=== PATIENT | male | born 1950 | race Caucasian/White ===

== ENCOUNTER 2021-08-10 10:22 | Observation (INO) | payer OTHER, MEDICARE ==
--- NOTE | 2021-08-10 11:40 | ED ---
General Adult HPI - General Chief complaint: Chest Pain Stated complaint: Chest Pain Time Seen by Provider: 08/10/21 11:32 Source: patient, family, RN notes reviewed, old records reviewed Mode of arrival: ambulatory Limitations: no limitations - History of Present Illness Initial comments: 71-year-old male presenting for evaluation chest pain. Patient has history of CAD status post multiple stents. Most recently 2014. She states [facility], he does not know the results. He just prior to arrival today he developed a substernal chest pain which was nonradiating. No associated vomiting or diarrhea. He states this pain has resolved currently. He denies dyspnea. He denies lower extremity pain or swelling. - Related Data Home Medications Medication Instructions Recorded Confirmed Aspirin 81 mg PO DAILY 08/10/21 08/10/21 Finasteride [Proscar] 5 mg PO DAILY 08/10/21 08/10/21 Metoprolol Tartrate [Lopressor] 50 mg PO BID 08/10/21 08/10/21 Primidone [Mysoline] 50 mg PO HS 08/10/21 08/10/21 Ranolazine [Ranexa] 500 mg PO BID 08/10/21 08/10/21 metFORMIN HCL [Glucophage] 1,000 mg PO DAILY 08/10/21 08/10/21 Allergies Allergy/AdvReac Type Severity Reaction Status Date / Time No Known Allergies Allergy Verified 08/10/21 12:57 Review of Systems ROS Statement: Those systems with pertinent positive or pertinent negative responses have been documented in the HPI. ROS Other: All systems not noted in ROS Statement are negative. Past Medical History Past Medical History: Chest Pain / Angina, Diabetes Mellitus, Hypertension, Myocardial Infarction ([place]) History of Any Multi-Drug Resistant Organisms: None Reported Past Surgical History: Heart Catheterization, Heart Catheterization With Stent Past Psychological History: No Psychological Hx Reported Smoking Status: Never smoker Past Alcohol Use History: Occasional Past Drug Use History: None Reported General Exam Limitations: no limitations General appearance: alert, in no apparent distress Head exam: Present: atraumatic, normocephalic Eye exam: Present: normal appearance, PERRL ENT exam: Present: normal exam Neck exam: Present: normal inspection. Absent: tenderness, meningismus Respiratory exam: Present: normal lung sounds bilaterally. Absent: respiratory distress, wheezes Cardiovascular Exam: Present: regular rate, normal rhythm GI/Abdominal exam: Present: soft. Absent: distended, tenderness, guarding Extremities exam: Present: normal inspection, normal capillary refill, pedal edema Neurological exam: Present: alert, oriented X3, CN II-XII intact. Absent: motor sensory deficit Psychiatric exam: Present: normal affect, normal mood Skin exam: Present: warm, dry, intact. Absent: cyanosis, diaphoretic Course Vital Signs 08/10/21 08/10/21 10:24 12:57 Temperature 98.6 F Pulse Rate 68 64 Respiratory 18 17 Rate Blood Pressure 177/77 133/72 O2 Sat by Pulse 99 98 Oximetry EKG Findings - EKG Comments: EKG Findings:: EKG: Normal sinus rhythm, left axis deviation, right bundle branch block rate of 65, SC interval 176, QRS duration 152 QTC 434, no ST segment elevation. Medical Decision Making - Medical Decision Making 71-year-old male with known CAD, presents with an episode of central chest pain. Resolved with time my evaluation and resolved at the time of my reevaluation at 1310. Patient is has chest x-ray which is negative for acute cardiopulmonary findings, normal CBC, normal CBC, negative initial troponin. Given his risk factors and previous history she will be admitted for severe cardiac enzymes, telemetry, cardiology consultation. Case discussed with Dr. Lopez who will admit. - Lab Data Result diagrams: 08/10/21 11:38 08/10/21 11:38 Lab Results 08/10/21 08/10/21 08/10/21 Range/Units 11:38 11:38 11:38 WBC 5.3 (3.8-10.6) k/uL RBC 4.84 (4.30-5.90) m/uL Hgb 14.9 (13.0-17.5) gm/dL Hct 42.8 (39.0-53.0) % MCV 88.5 (80.0-100.0) fL MCH 30.8 (25.0-35.0) pg MCHC 34.8 (31.0-37.0) g/dL RDW 13.6 (11.5-15.5) % Plt Count 161 (150-450) k/uL MPV 7.6 Neutrophils % 64 % Lymphocytes % 23 % Monocytes % 6 % Eosinophils % 5 % Basophils % 1 % Neutrophils # 3.3 (1.3-7.7) k/uL Lymphocytes # 1.2 (1.0-4.8) k/uL Monocytes # 0.3 (0-1.0) k/uL Eosinophils # 0.2 (0-0.7) k/uL Basophils # 0.1 (0-0.2) k/uL PT 11.0 (9.0-12.0) sec INR 1.0 (<1.2) APTT 24.4 (22.0-30.0) sec Sodium 138 (137-145) mmol/L Potassium 4.7 (3.5-5.1) mmol/L Chloride 105 (98-107) mmol/L Carbon Dioxide 26 (22-30) mmol/L Anion Gap 7 mmol/L BUN 19 (9-20) mg/dL Creatinine 1.09 (0.66-1.25) mg/dL Est GFR (CKD-EPI)AfAm 78 (>60 ml/min/1.73 sqM) Est GFR (CKD-EPI)NonAf 67 (>60 ml/min/1.73 sqM) Glucose 127 H (74-99) mg/dL Calcium 10.0 (8.4-10.2) mg/dL Magnesium 1.9 (1.6-2.3) mg/dL Total Bilirubin 0.5 (0.2-1.3) mg/dL AST 23 (17-59) U/L ALT 17 (4-49) U/L Alkaline Phosphatase 86 (38-126) U/L Troponin I (0.000-0.034) ng/mL NT-Pro-B Natriuret Pep pg/mL Total Protein 6.7 (6.3-8.2) g/dL Albumin 4.1 (3.5-5.0) g/dL Lipase 43 (23-300) U/L 08/10/21 08/10/21 Range/Units 11:38 11:38 WBC (3.8-10.6) k/uL RBC (4.30-5.90) m/uL Hgb (13.0-17.5) gm/dL Hct (39.0-53.0) % MCV (80.0-100.0) fL MCH (25.0-35.0) pg MCHC (31.0-37.0) g/dL RDW (11.5-15.5) % Plt Count (150-450) k/uL MPV Neutrophils % % Lymphocytes % % Monocytes % % Eosinophils % % Basophils % % Neutrophils # (1.3-7.7) k/uL Lymphocytes # (1.0-4.8) k/uL Monocytes # (0-1.0) k/uL Eosinophils # (0-0.7) k/uL Basophils # (0-0.2) k/uL PT (9.0-12.0) sec INR (<1.2) APTT (22.0-30.0) sec Sodium (137-145) mmol/L Potassium (3.5-5.1) mmol/L Chloride (98-107) mmol/L Carbon Dioxide (22-30) mmol/L Anion Gap mmol/L BUN (9-20) mg/dL Creatinine (0.66-1.25) mg/dL Est GFR (CKD-EPI)AfAm (>60 ml/min/1.73 sqM) Est GFR (CKD-EPI)NonAf (>60 ml/min/1.73 sqM) Glucose (74-99) mg/dL Calcium (8.4-10.2) mg/dL Magnesium (1.6-2.3) mg/dL Total Bilirubin (0.2-1.3) mg/dL AST (17-59) U/L ALT (4-49) U/L Alkaline Phosphatase (38-126) U/L Troponin I <0.012 (0.000-0.034) ng/mL NT-Pro-B Natriuret Pep 58 pg/mL Total Protein (6.3-8.2) g/dL Albumin (3.5-5.0) g/dL Lipase (23-300) U/L Disposition Clinical Impression: Chest pain Disposition: ADMITTED IP TO THIS [facility] Condition: Stable Is patient prescribed a controlled substance at d/c from ED?: No Referrals: Nonstaff,Physician [Primary Care Provider] - 1-2 days Decision to Admit Reason: Admit from EC Decision Date: 08/10/21 Decision Time: 13:14
[2021-08-10 12:07] LABS: Basophils # (A) 0.1 k/uL (0-0.2); Basophils % (A) 1 %; Eosinophils # (A) 0.2 k/uL (0-0.7); Eosinophils % (A) 5 %; HCT 42.8 % (39.0-53.0); HGB 14.9 gm/dL (13.0-17.5); Lymphocytes # (A) 1.2 k/uL (1.0-4.8); Lymphocytes % (A) 23 %; MCH 30.8 pg (25.0-35.0); MCHC 34.8 g/dL (31.0-37.0); MCV 88.5 fL (80.0-100.0); Mean Platelet Volume 7.6; Monocytes # (A) 0.3 k/uL (0-1.0); Monocytes % (A) 6 %; Neutrophils # (A) 3.3 k/uL (1.3-7.7); Neutrophils % (A) 64 %; Platelet Count 161 k/uL (150-450); RBC 4.84 m/uL (4.30-5.90); RDW 13.6 % (11.5-15.5); WBC 5.3 k/uL (3.8-10.6)
[2021-08-10 12:16] LABS: Albumin 4.1 g/dL (3.5-5.0); Magnesium 1.9 mg/dL (1.6-2.3); Potassium 4.7 mmol/L (3.5-5.1); Total Bilirubin 0.5 mg/dL (0.2-1.3); Total Protein 6.7 g/dL (6.3-8.2)
[2021-08-10 12:24] LABS: Partial Thromboplastin Time 24.4 sec (22.0-30.0)
--- NOTE | 2021-08-10 12:33 | XR ---
EXAMINATION TYPE: XR chest 2V DATE OF EXAM: 08/10/2021 COMPARISON: NONE HISTORY: Chest pain. TECHNIQUE: Frontal and lateral views of the chest are obtained. FINDINGS: There is mild chronic parenchymal changes without suspicious focal air space opacity, pleu ral effusion, or pneumothorax seen. The cardiac silhouette size is within normal limits. Long segme nt Coronary stent in the left circumflex distribution. Surgical change proximal right humerus. IMPRESSION: No acute process.
[2021-08-10] MEDS ORDERED: ASPIRIN 325 MG TAB PO STA (12:47)
[2021-08-10] MEDS ORDERED: NALOXONE 0.4 MG/ML 1 ML VIAL IV PRN (13:09)
[2021-08-10] MEDS ORDERED: ACETAMINOPHEN TAB 325 MG TAB PO PRN (13:09)
[2021-08-10] MEDS ORDERED: MORPHINE SULFATE 4 MG/ML SYRINGE IV PRN (13:09)
[2021-08-10] MEDS ORDERED: NITROGLYCERIN SL TABS 0.4 MG TAB SUBLINGUAL PRN (13:10)
[2021-08-10] MEDS ORDERED: HEPARIN SODIUM 1,000 UN/ML (10ML VL) IV PRN (18:10)
[2021-08-10] MEDS ORDERED: HEPARIN SODIUM 1,000 UN/ML (10ML VL) IV ONE (18:10)
[2021-08-10] MEDS ORDERED: HEPARIN SOD,PORK IN 0.45% NACL 25,000 UNIT in 0.45% NACL 1 250ML.BAG IV SCH (18:30)
[2021-08-10] MEDS ORDERED: ALPRAZolam 0.25 MG TAB PO PRN (18:59)
[2021-08-10] MEDS ORDERED: HYDROcodone/APAP 5-325MG 1 EACH TAB PO PRN (18:59)
[2021-08-10 20:01] LABS: Basophils # (A) 0.1 k/uL (0-0.2); Basophils % (A) 1 %; Eosinophils # (A) 0.3 k/uL (0-0.7); Eosinophils % (A) 5 %; HCT 41.2 % (39.0-53.0); HGB 13.9 gm/dL (13.0-17.5); Lymphocytes # (A) 1.5 k/uL (1.0-4.8); Lymphocytes % (A) 27 %; MCH 30.7 pg (25.0-35.0); MCHC 33.8 g/dL (31.0-37.0); MCV 90.8 fL (80.0-100.0); Mean Platelet Volume 7.8; Monocytes # (A) 0.4 k/uL (0-1.0); Monocytes % (A) 8 %; Neutrophils % (A) 56 %; Platelet Count 150 k/uL (150-450); RBC 4.54 m/uL (4.30-5.90); RDW 13.1 % (11.5-15.5); WBC 5.4 k/uL (3.8-10.6)
[2021-08-10 20:22] LABS: INR 1.1 (<1.2); Prothrombin Time 11.3 sec (9.0-12.0)
--- NOTE | 2021-08-10 20:31 | HP ---
HISTORY AND PHYSICAL DATE OF SERVICE: 08/10/2021 CHIEF COMPLAINT: Chest pain. HISTORY OF PRESENT ILLNESS: This 71-year-old gentleman with a past medical history of multiple medical problems including diabetes, hypertension, myocardial infarction, also being followed by [facility] and Dr. Reddy. Patient also is being followed by [facility] in [place]. Patient apparently had a recent stress test, which was told to be abnormal. Details are not available at this time. Today the patient has chest pain in the anterior part of chest which is rather sharp in character and the patient is concerned. The patient came to [facility] and was admitted for further evaluation and treatment. There is no history of fever, rigors. No history of headache, loss of consciousness, seizures. PAST MEDICAL HISTORY: History of chest pain, diabetes, hypertension, history of myocardial infarction, history of recent positive stress test. MEDICATIONS: Home medications: Mysoline 50 mg p.o. q.h.s., Proscar, Glucophage, Ranexa, Lopressor, aspirin, doses reviewed. ALLERGIES: None. FAMILY HISTORY: No history of heart disease or strokes in the family. SOCIAL HISTORY: No history of smoking. Occasional alcohol intake. REVIEW OF SYSTEMS: ENT: Diminished vision. Diminished hearing. Cardio system: As mentioned earlier. RESPIRATORY: As mentioned earlier. GI: No nausea or vomiting. : No dysuria. NERVOUS SYSTEM: No numbness or weakness. ALLERGY/IMMUNOLOGY: No asthma or hayfever. MUSCULOSKELETAL: As mentioned earlier. HEMATOLOGY/ONCOLOGY: No history of anemia. ENDOCRINE: As mentioned earlier. CONSTITUTIONAL: As mentioned earlier. DERMATOLOGY: Negative. RHEUMATOLOGY: Negative. PSYCHIATRIC: As mentioned earlier. PHYSICAL EXAMINATION: Alert and oriented times three. Pulse 68, blood pressure 177/77, respiration rate 18, temperature 98.2, pulse ox 98% on room air. HEENT: Conjunctivae normal. Oral mucosa moist. NECK: No jugular venous distention. No lymph node enlargement. CARDIOVASCULAR: S1, S2. RESPIRATION: Breath sounds diminished in the bases. No rhonchi. No crackles. ABDOMEN: Soft, nontender. No mass palpable. LEGS: No edema. No swelling. NERVOUS SYSTEM: Higher functions as mentioned. Moves all four limbs. No focal motor or sensory deficits. LYMPHATICS: No lymph nodes palpable in the neck, axillae or groin. SKIN: No ulcer, no rash and no bleeding. JOINTS: No active deforming arthropathy. LABORATORY DATA: CBC within normal limits. PT/INR noted. Glucose 127. The EKG which was reviewed personally by me showed right bundle branch block and some R waves also. Otherwise the chest x-ray showed no acute abnormality. ASSESSMENT: 1. Chest pain possible unstable angina. 2. History of recent positive stress test. 3. Right bundle branch block on the EKG. 4. History of diabetes type 2. 5. Hypertension. 6. History of myocardial infarction. 7. History of coronary artery disease/ stent. 8. FULL CODE. RECOMMENDATIONS AND DISCUSSION: This 71-year-old gentleman who presented with multiple complex medical issues, we will monitor the patient closely. Continue the current medications, management, and symptomatic treatment. Unstable angina protocol, heparin. Resume the home medications. Cardiology consultation. Prognosis guarded. We will also try to obtain the old records from [place] of recent stress test. Further recommendations to follow. Closely with Cardiology. A copy of this dictation is being forwarded to Dr. Reddy who is the primary physician. MMAGATHAL / PEDRON: [id number] / MTDD
[2021-08-10 20:35] LABS: Partial Thromboplastin Time 113.4 sec (22.0-30.0)
[2021-08-10] MEDS ORDERED: PRIMIDONE 50 MG TAB PO SCH (21:00)
[2021-08-10] MEDS: RANOLAZINE 500 MG TAB.ER.12H PO SCH (21:32)
[2021-08-10] MEDS: METOPROLOL TARTRATE 50 MG TAB PO SCH (21:32)
[2021-08-11 07:02] LABS: Glucose,Whole Blood 144 mg/dL (75-99)
[2021-08-11] MEDS ORDERED: PANTOPRAZOLE 40 MG TABLET PO SCH (07:30)
[2021-08-11 07:57] LABS: Prothrombin Time 10.8 sec (9.0-12.0)
--- NOTE | 2021-08-11 08:02 | ECHOF ---
Referral Reason:chest pain MEASUREMENTS -------- HEIGHT: 188.0 cm WEIGHT: 81.6 kg BP: 140/74 RVIDd: 3.0 cm (< 3.3) IVSd: 1.2 cm (0.6 - 1.1) LVIDd: 4.0 cm (3.9 - 5.3) LVPWd: 1.2 cm (0.6 - 1.1) IVSs: 1.6 cm LVIDs: 2.8 cm LVPWs: 1.7 cm LA Diam: 2.9 cm (2.7 - 3.8) LAESV Index (A-L): 20.99 ml/m Ao Diam: 3.5 cm (2.0 - 3.7) AV Cusp: 2.2 cm (1.5 - 2.6) MV EXCURSION: 19.436 mm (> 18.000) MV EF SLOPE: 146 mm/s (70 - 150) EPSS: 1.1 cm MV E Karsten: 0.96 m/s MV DecT: 240 ms MV A Karsten: 1.09 m/s MV E/A Ratio: 0.89 TAPSE: 28.89 mm FINDINGS -------- Sinus rhythm. This was a technically adequate study. The left ventricular size is normal. There is borderline concentric left ventricular hypertrophy. Overall left ventricular systolic function is normal with, an EF between 60 - 65 %. The right ventricle is normal in size. Normal LA size by volume 22+/-6 ml/m2. The right atrium is normal in size. Interatrial and interventricular septum intact. Aortic valve is trileaflet and is mildly thickened. The mitral valve is normal. The tricuspid valve appears structurally normal. Unable to estimate RVSP due to inadequate TR jet s pectral doppler profile. The pulmonic valve was not well visualized. The aortic root size is normal. Normal inferior vena cava with normal inspiratory collapse consistent with estimated right atrial pre ssure of 5 mmHg. There is no pericardial effusion. CONCLUSIONS -------- 1. The left ventricular size is normal. 2. There is borderline concentric left ventricular hypertrophy. 3. Overall left ventricular systolic function is normal with, an EF between 60 - 65 %. 4. Aortic valve is trileaflet and is mildly thickened. 5. There is no pericardial effusion. [employer] RE[employer]DER: Talia Walsh RDCS
[2021-08-11 08:08] LABS: Partial Thromboplastin Time 110.8 sec (22.0-30.0)
[2021-08-11 08:19] VITALS: BP 132/73; PULSE 51; RESP 16; TEMP 98.1
[2021-08-11] MEDS: RANOLAZINE 500 MG TAB.ER.12H PO SCH (08:33)
[2021-08-11] MEDS: METOPROLOL TARTRATE 50 MG TAB PO SCH (08:33)
[2021-08-11] MEDS ORDERED: ASPIRIN 81 MG PO SCH (09:00)
[2021-08-11] MEDS ORDERED: FINASTERIDE 5 MG TAB PO SCH (09:00)
[2021-08-11 11:36] LABS: African American GFR (CKD) 57.4 (60.0-200.0); Anion Gap 10.1 mmol/L (10.00-18.00); BUN/Creat Ratio 21.21 Ratio (12.00-20.00); Blood Urea Nitrogen 29.7 mg/dL (9.0-27.0); Calcium 9.8 mg/dL (8.7-10.3); Carbon Dioxide 22.9 mmol/L (20.0-27.5); Non-African American GFR(CKD) 49.5 (60.0-200.0); Potassium 4.4 mmol/L (3.5-5.5)
[2021-08-11 11:57] LABS: Basophils # (A) 0.06 X 10*3/uL (0.00-0.10); Basophils % (A) 0.9 %; Eosinophils # (A) 0.35 X 10*3/uL (0.04-0.35); Eosinophils % (A) 5.3 %; HCT 41.1 % (39.6-50.0); HGB 13.1 g/dL (13.0-17.0); Lymphocytes # (A) 1.82 X 10*3/uL (0.90-5.00); Lymphocytes % (A) 27.5 %; MCHC 31.9 g/dL (32.0-37.0); MCV 90.9 fL (80.0-97.0); Mean Platelet Volume 11.2 fL (9.5-12.2); Monocytes # (A) 0.67 X 10*3/uL (0.20-1.00); Monocytes % (A) 10.1 %; Neutrophils # (A) 3.71 X 10*3/uL (1.80-7.70); Neutrophils % (A) 55.9 %; Platelet Count 141 X 10*3/uL (140-440); RBC 4.52 X 10*6/uL (4.40-5.60); RDW 13.7 % (11.5-14.5); WBC 6.63 X 10*3/uL (4.50-10.00)
--- NOTE | 2021-08-11 12:04 | P.CRDCN ---
History of Present Illness Consult date: 08/11/21 History of present illness: HISTORY OF PRESENT ILLNESS: This is a 71-year-old male with a past medical history significant for diabetes, neuropathy, and coronary artery disease with previous stent placement per patient although exact details are unknown. 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 We have been asked to see the patient in consultation for chest pain. Patient ex amined at the bedside. Patient states 2 days ago he began having chest discomfort. He states yesterday he was at his neurologist office to get an EMG when he started having chest pain in the doctors office. He describes this as a pressure in the middle of his chest. He denied having any radiation. No nausea or vomiting. He states he was slightly short of breath. He believes he received sublingual nitro when he came to the emergency room but does not think it helped much. He states he has had pain like this before with his previous heart attacks. He states he was given food when he came to the hospital and that relieved his pain. He currently denies chest pain or pressure. He reports having a stress test a couple days ago and was told it was abnormal at the [facility]. However there are no results of this at the time of my dictation. EKG reveals sinus mechanism with right bundle-branch block. Left axis deviation. Chest xray negative for acute process Laboratory data: WBC 6.63. Hemoglobin 13.1. Platelet count 141. Sodium 140. Potassium 4.4. BUN 29. Creatinine 1.4. Troponin negative 3. A cardiogram obtained revealed ejection fraction 60-65% with no significant valvular abnormalities. REVIEW OF SYSTEMS: At the time of my exam: CONSTITUTIONAL: Denies fever or chills. HEENT: Denies blurred vision, vision changes, or eye pain. Denies hemoptysis CARDIOVASCULAR: Denies chest pain. Denies orthopnea. Denies PND. Denies palpitations RESPIRATORY: Denies shortness of breath. GASTROINTESTINAL: Denies abdominal pain. Denies nausea or vomiting. HEMATOLOGIC: Denies bleeding disorders. GENITOURINARY: Denies any blood in urine. SKIN: Denies pruitis. Denies rash. PHYSICAL EXAM: VITAL SIGNS: Reviewed. GENERAL: Well-developed in no acute distress. HEENT: Head is normocephalic. Pupils are equal, round. Sclerae anicteric. Mucous membranes of the mouth are moist. Neck supple. No JVD or thyromegaly LUNGS: Respirations even and unlabored. Lungs essentially clear to auscultation bilaterally. HEART: Regular rate and rhythm. S1 and S2 heard. ABDOMEN: Soft. Nondistended. Nontender. EXTREMITIES: Normal range of motion. No clubbing or cyanosis. Peripheral pulses intact. No lower extremity edema NEUROLOGIC: Awake and alert. Oriented x 3. ASSESSMENT: Chest pain Coronary artery disease with previous PCI, exact details unknown Diabetes Neuropathy PLAN: 2D echo obtained and reviewed Patient states he had an abnormal stress test a few days ago but there are no records available from the [facility] at this time Discussed cardiac cath with patient if he indeed did have an abnormal stress test Patient states he does not want a cardiac cath at this time and states this was the first episode of chest pain he has had and he would like to be discharged home Nitro SL sent to the pharmacy Agreeable to discharge home today with close outpatient follow up with Dr. Martinez. Patient agreeable. Nurse practitioner note has been reviewed by physician. Signing provider agrees with the documented findings, assessment, and plan of care. Past Medical History Past Medical History: Chest Pain / Angina, Diabetes Mellitus, Hypertension, Myocardial Infarction ([place]) Last Myocardial Infarction Date:: unknown History of Any Multi-Drug Resistant Organisms: None Reported Past Surgical History: Heart Catheterization, Heart Catheterization With Stent Date of Last Stent Placement:: 2014 Past Psychological History: No Psychological Hx Reported Smoking Status: Never smoker Past Alcohol Use History: Occasional Past Drug Use History: None Reported Medications and Allergies Home Medications Medication Instructions Recorded Confirmed Type Aspirin 81 mg PO DAILY 08/10/21 08/10/21 History Finasteride [Proscar] 5 mg PO DAILY 08/10/21 08/10/21 History Metoprolol Tartrate [Lopressor] 50 mg PO BID 08/10/21 08/10/21 History Primidone [Mysoline] 50 mg PO HS 08/10/21 08/10/21 History Ranolazine [Ranexa] 500 mg PO BID 08/10/21 08/10/21 History metFORMIN HCL [Glucophage] 1,000 mg PO DAILY 08/10/21 08/10/21 History Nitroglycerin Sl Tabs [Nitrostat] 0.4 mg SUBLINGUAL Q5M PRN #100 tab 08/11/21 Rx Allergies Allergy/AdvReac Type Severity Reaction Status Date / Time No Known Allergies Allergy Verified 08/10/21 12:57 Physical Exam Vitals: Vital Signs Temp Pulse Pulse Resp BP BP Pulse Ox 08/11/21 02:05 97.4 F L 55 L 18 133/73 97 08/10/21 21:00 98.2 F 59 L 18 161/76 98 08/10/21 18:39 66 131/80 08/10/21 13:55 65 18 140/74 97 08/10/21 13:26 67 18 98 08/10/21 12:57 64 17 133/72 98 08/10/21 10:24 98.6 F 68 18 177/77 99 Intake and Output 08/10/21 08/11/21 08/11/21 22:59 06:59 14:59 Intake Total 42.131 21.309 Output Total 300 700 Balance -257.869 -678.691 Intake: Intake, IV Titration 42.131 21.309 Amount Heparin Sod,Pork in 0.45% 42.131 21.309 NaCl 25,000 unit In 0.45 % NaCl 1 250ml.bag @ 12 UNITS/KG/HR 9.798 mls/hr IV .Q24H [facility] Rx#: [id number] Output: Urine 300 700 Other: # Voids 1 Weight 81.647 kg Results 08/10/21 19:40 08/11/21 06:10 Cardiac Enzymes 08/10/21 08/10/21 08/10/21 Range/Units 11:38 11:38 16:15 AST 23 (17-59) U/L Troponin I <0.012 <0.012 (0.000-0.034) ng/mL 08/10/21 Range/Units 19:40 AST (17-59) U/L Troponin I <0.012 (0.000-0.034) ng/mL Coagulation 08/10/21 08/10/21 08/11/21 Range/Units 11:38 19:41 00:20 PT 11.0 11.3 (9.0-12.0) sec APTT 24.4 113.4 H* 27.8 (22.0-30.0) sec 08/11/21 Range/Units 06:10 PT 10.8 (9.0-12.0) sec APTT 110.8 H* (22.0-30.0) sec CBC 08/10/21 08/10/21 Range/Units 11:38 19:40 WBC 5.3 5.4 (3.8-10.6) k/uL RBC 4.84 4.54 (4.30-5.90) m/uL Hgb 14.9 13.9 (13.0-17.5) gm/dL Hct 42.8 41.2 (39.0-53.0) % Plt Count 161 150 (150-450) k/uL Comprehensive Metabolic Panel 08/10/21 Range/Units 11:38 Sodium 138 (137-145) mmol/L Potassium 4.7 (3.5-5.1) mmol/L Chloride 105 (98-107) mmol/L Carbon Dioxide 26 (22-30) mmol/L BUN 19 (9-20) mg/dL Creatinine 1.09 (0.66-1.25) mg/dL Glucose 127 H (74-99) mg/dL Calcium 10.0 (8.4-10.2) mg/dL AST 23 (17-59) U/L ALT 17 (4-49) U/L Alkaline Phosphatase 86 (38-126) U/L Total Protein 6.7 (6.3-8.2) g/dL Albumin 4.1 (3.5-5.0) g/dL Current Medications Generic Name Dose Route Start Last Admin Trade Name Freq PRN Reason Stop Dose Admin Acetaminophen 650 mg 08/10/21 13:09 Acetaminophen Tab 325 Mg Tab PO Q6HR PRN Mild Pain or Fever > 100.5 Hydrocodone Bitart/Acetaminophen 1 each 08/10/21 18:59 Hydrocodone/Apap 5-325mg 1 Each Tab PO Q6HR PRN Pain Alprazolam 0.25 mg 08/10/21 18:59 Alprazolam 0.25 Mg Tab PO TID PRN Anxiety Aspirin 81 mg 08/11/21 09:00 Aspirin 81 Mg PO DAILY MATTHIAS Finasteride 5 mg 08/11/21 09:00 Finasteride 5 Mg Tab PO DAILY MATTHIAS Heparin Sodium (Porcine) 0 unit 08/10/21 18:10 08/11/21 02:58 Heparin Sodium 1,000 Un/Ml (10ml Vl) IV 4,000 unit PER PROTOCOL PRN Administration Low PTT Protocol Heparin Sodium/Sodium Chloride 250 mls @ 9.798 mls/hr 08/10/21 18:30 08/11/21 01:52 25,000 unit/ Sodium Chloride IV 12 units/kg/hr .Q24H [facility] 9.798 mls/hr Titration Protocol 12 UNITS/KG/HR Metoprolol Tartrate 50 mg 08/10/21 21:00 08/10/21 21:32 Metoprolol Tartrate 50 Mg Tab PO 50 mg BID MATTHIAS Administration Morphine Sulfate 4 mg 08/10/21 13:09 Morphine Sulfate 4 Mg/Ml Syringe IV Q4HR PRN Severe Pain Naloxone HCl 0.2 mg 08/10/21 13:09 Naloxone 0.4 Mg/Ml 1 Ml Vial IV Q2M PRN Opioid Reversal Nitroglycerin 0.4 mg 08/10/21 13:10 Nitroglycerin Sl Tabs 0.4 Mg Tab SUBLINGUAL Q5M PRN Chest Pain Pantoprazole Sodium 40 mg 08/11/21 07:30 Pantoprazole 40 Mg Tablet PO AC-BRKFST MATTHIAS Primidone 50 mg 08/10/21 21:00 08/10/21 21:38 Primidone 50 Mg Tab PO 50 mg HS MATTHIAS Administration Ranolazine 500 mg 08/10/21 21:00 08/10/21 21:32 Ranolazine 500 Mg Tab.Er.12h PO 500 mg BID MATTHIAS Administration Intake and Output 08/10/21 08/11/21 08/11/21 22:59 06:59 14:59 Intake Total 42.131 21.309 Output Total 300 700 Balance -257.869 -678.691 Intake: Intake, IV Titration 42.131 21.309 Amount Heparin Sod,Pork in 0.45% 42.131 21.309 NaCl 25,000 unit In 0.45 % NaCl 1 250ml.bag @ 12 UNITS/KG/HR 9.798 mls/hr IV .Q24H [facility] Rx#: [id number] Output: Urine 300 700 Other: # Voids 1 Weight 81.647 kg 08/10/21 19:40 08/10/21 11:38
--- NOTE | 2021-08-12 07:49 | DS ---
DISCHARGE SUMMARY DATE OF SERVICE: 08/11/2021 FINAL DIAGNOSES: 1. Chest pain, possible unstable angina. 2. Recent positive stress test. 3. Right bundle block on EKG. 4. Diabetes mellitus, type 2. 5. Hypertension. 6. History of myocardial infarction. 7. History of coronary artery disease, stent. DISCHARGE DISPOSITION: The patient will be discharged in stable condition with guarded prognosis. The patient refused cardiac cath and would like to follow up with the [facility] in [place]. Cardiology cleared the patient for discharge. HISTORY OF PRESENT ILLNESS: This 71-year-old gentleman with a past medical history of multiple medical problems had chest pain. Myocardial function was ruled out. Treated with unstable angina protocol. Cardiology saw the patient and recommended cardiac because of a recent positive stress test, but the patient would like to follow up with [facility], and the patient refused further evaluation, including cardiac cath, so the patient will be discharged in stable condition with guarded prognosis. DISCHARGE ADVICE AND MEDICATIONS: 1. Cardiac diet. 2. Activity limited until followup. 3. Follow up with [facility] in 2 to 3 days. 4. Follow up with [facility] in 2 to 3 days. 5. Aspirin 81 mg p.o. daily. 6. Glucophage 1000 mg p.o. daily. 7. Lopressor 50 mg p.o. b.i.d. 8. Mysoline 50 mg at bedtime. 9. Proscar 5 mg p.o. daily. 10.Ranexa 500 mg p.o. b.i.d. 11.Nitroglycerin 0.4 mg sublingually p.r.n. MMSHREYA / BRIAN: [id number] /
== END 2021-08-11 13:17 | disposition home or self-care (01) ==
LOC: EC 10:22 → 6NMEDSUR 13:09
PROVIDERS: ADMIT Hospitalist; ATTEND Hospitalist
DX: R07.2 Precordial pain (principal); R06.02 Shortness of breath; R94.39 Abnormal result of other cardiovascular function study; I45.10 Unspecified right bundle-branch block; I10 Essential (primary) hypertension; E11.40 Type 2 diabetes mellitus with diabetic neuropathy, unspecified; I25.2 Old myocardial infarction; I25.10 Atherosclerotic heart disease of native coronary artery without angina pectoris; Z95.5 Presence of coronary angioplasty implant and graft; Z53.29 Procedure and treatment not carried out because of patient's decision for other reasons; Z79.899 Other long term (current) drug therapy; Z79.84 Long term (current) use of oral hypoglycemic drugs; Z79.82 Long term (current) use of aspirin
CPT/HCPCS: 96376 ×2; 96366 ×3; 96365; 99285; 36415; 93005; 93306; 83880; 80053; 80048; 83690; 83735; 84484; 85025 ×2; 85610 ×2; 85730 ×2; 71046; G0378 ×2; J1644 ×3

== ENCOUNTER 2021-08-12 12:42 | Inpatient (IN) | payer OTHER, MEDICARE ==
[2021-08-12] MEDS ORDERED: NALOXONE 0.4 MG/ML 1 ML VIAL IV PRN (13:32)
[2021-08-12] MEDS ORDERED: MORPHINE SULFATE 4 MG/ML SYRINGE IV PRN (13:32)
[2021-08-12] MEDS ORDERED: ONDANSETRON 4 MG/2 ML VIAL IVP PRN (13:32)
[2021-08-12] MEDS ORDERED: ASPIRIN 325 MG TAB PO STA (13:33)
--- NOTE | 2021-08-12 13:37 | ED ---
General Adult HPI - General Chief complaint: Chest Pain Stated complaint: chest pain Time Seen by Provider: 08/12/21 12:56 Source: patient, family, RN notes reviewed, old records reviewed Mode of arrival: ambulatory Limitations: no limitations - History of Present Illness Initial comments: 71-year-old male presenting for recurrent chest pain. Patient was recently admitted and discharged. There had been an abnormal outpatient stress test at the [place] and the patient was recommended to receive heart catheterization however secondary to the thinks giving holiday he chose to be discharged with strict return parameters. Today he developed a substernal chest pain which radiated to his bilateral shoulders. This was relieved with rest and nitroglycerin. Patient is chest pain-free at the time my evaluation. - Related Data Home Medications Medication Instructions Recorded Confirmed Aspirin 81 mg PO DAILY 08/10/21 08/12/21 Finasteride [Proscar] 5 mg PO DAILY 08/10/21 08/12/21 Metoprolol Tartrate [Lopressor] 50 mg PO BID 08/10/21 08/12/21 Primidone [Mysoline] 50 mg PO HS 08/10/21 08/12/21 Ranolazine [Ranexa] 500 mg PO BID 08/10/21 08/12/21 metFORMIN HCL [Glucophage] 1,000 mg PO DAILY 08/10/21 08/12/21 Previous Rx's Medication Instructions Recorded Nitroglycerin Sl Tabs [Nitrostat] 0.4 mg SUBLINGUAL Q5M PRN #100 tab 08/11/21 Allergies Allergy/AdvReac Type Severity Reaction Status Date / Time No Known Allergies Allergy Verified 08/12/21 14:02 Review of Systems ROS Statement: Those systems with pertinent positive or pertinent negative responses have been documented in the HPI. ROS Other: All systems not noted in ROS Statement are negative. Past Medical History Past Medical History: Chest Pain / Angina, Diabetes Mellitus, Hypertension, Myocardial Infarction ([place]) Last Myocardial Infarction Date:: unknown History of Any Multi-Drug Resistant Organisms: None Reported Past Surgical History: Heart Catheterization, Heart Catheterization With Stent Date of Last Stent Placement:: 2014 Past Psychological History: No Psychological Hx Reported Smoking Status: Never smoker Past Alcohol Use History: Occasional Past Drug Use History: None Reported General Exam Limitations: no limitations General appearance: alert, in no apparent distress Head exam: Present: atraumatic, normocephalic Eye exam: Present: normal appearance, PERRL ENT exam: Present: normal exam Neck exam: Present: normal inspection. Absent: tenderness, meningismus Respiratory exam: Present: normal lung sounds bilaterally. Absent: respiratory distress, wheezes Cardiovascular Exam: Present: regular rate, normal rhythm GI/Abdominal exam: Present: soft. Absent: distended, tenderness, guarding Extremities exam: Present: normal inspection, normal capillary refill. Absent: pedal edema Neurological exam: Present: alert, oriented X3, CN II-XII intact. Absent: motor sensory deficit Psychiatric exam: Present: normal affect, normal mood Skin exam: Present: warm, dry, intact. Absent: cyanosis, diaphoretic Course Vital Signs 08/12/21 12:45 Temperature 97.9 F Pulse Rate 70 Respiratory 18 Rate Blood Pressure 131/64 O2 Sat by Pulse 98 Oximetry EKG Findings - EKG Comments: EKG Findings:: Normal sinus right bundle-branch block, no ST segment elevation, rate of 61, AK interval 172, QRS duration 152, QTC 457. Medical Decision Making - Medical Decision Making 71-year-old male who had presented for evaluation of chest pain. Recent admission with unstable angina. Patient states his pain was relieved by rest and nitroglycerin. His initial EKG is sinus rhythm without ST segment elevation. His chest x-ray is clear. He has normal CBC, normal CMP, negative initial troponin. He had taken nitroglycerin and aspirin prior to arrival. He started on heparin. He will be admitted for serial cardiac enzymes, cold urology consultation. Case discussed with Dr. Lpoez who will admit - Lab Data Result diagrams: 08/12/21 13:30 08/12/21 13:30 Lab Results 08/12/21 08/12/21 08/12/21 Range/Units 13:30 13:30 13:30 WBC 4.3 (3.8-10.6) k/uL RBC 4.51 (4.30-5.90) m/uL Hgb 13.7 (13.0-17.5) gm/dL Hct 41.4 (39.0-53.0) % MCV 91.6 (80.0-100.0) fL MCH 30.4 (25.0-35.0) pg MCHC 33.1 (31.0-37.0) g/dL RDW 13.2 (11.5-15.5) % Plt Count 142 L (150-450) k/uL MPV 7.9 Neutrophils % 56 % Lymphocytes % 29 % Monocytes % 7 % Eosinophils % 6 % Basophils % 1 % Neutrophils # 2.4 (1.3-7.7) k/uL Lymphocytes # 1.2 (1.0-4.8) k/uL Monocytes # 0.3 (0-1.0) k/uL Eosinophils # 0.3 (0-0.7) k/uL Basophils # 0.1 (0-0.2) k/uL PT 10.5 (9.0-12.0) sec INR 1.0 (<1.2) APTT 23.0 (22.0-30.0) sec Sodium 139 (137-145) mmol/L Potassium 4.4 (3.5-5.1) mmol/L Chloride 106 (98-107) mmol/L Carbon Dioxide 27 (22-30) mmol/L Anion Gap 6 mmol/L BUN 27 H (9-20) mg/dL Creatinine 1.19 (0.66-1.25) mg/dL Est GFR (CKD-EPI)AfAm 70 (>60 ml/min/1.73 sqM) Est GFR (CKD-EPI)NonAf 60 (>60 ml/min/1.73 sqM) Glucose 199 H (74-99) mg/dL Calcium 10.0 (8.4-10.2) mg/dL Magnesium 1.8 (1.6-2.3) mg/dL Total Bilirubin 0.3 (0.2-1.3) mg/dL AST 20 (17-59) U/L ALT 16 (4-49) U/L Alkaline Phosphatase 79 (38-126) U/L Total Protein 6.3 (6.3-8.2) g/dL Albumin 3.6 (3.5-5.0) g/dL Critical Care Time Critical Care Time: Yes Total Critical Care Time: 35 Disposition Clinical Impression: Unstable angina pectoris Disposition: ADMITTED IP TO THIS [facility] Condition: Stable Is patient prescribed a controlled substance at d/c from ED?: No Referrals: Nonstaff,Physician [Primary Care Provider] - 1-2 days Decision to Admit Reason: Admit from EC Decision Date: 08/12/21 Decision Time: 14:35
[2021-08-12] MEDS ORDERED: SODIUM CHLORIDE 0.9% 1,000 ML IV SCH (13:45)
--- NOTE | 2021-08-12 13:48 | XR ---
EXAMINATION TYPE: XR chest 2V DATE OF EXAM: 08/12/2021 COMPARISON: Chest x-ray 2 days ago. HISTORY: Chest pain TECHNIQUE: Frontal and lateral views of the chest are obtained. FINDINGS: There is no suspicious new focal air space opacity, pleural effusion, or pneumothorax seen . The cardiac silhouette size is stable and within normal limits. Large ian in the right proxima l humerus redemonstrated. Overlying EKG leads redemonstrated. IMPRESSION: No acute process. No significant change from prior.
[2021-08-12 14:09] LABS: Basophils # (A) 0.1 k/uL (0-0.2); Basophils % (A) 1 %; Eosinophils # (A) 0.3 k/uL (0-0.7); Eosinophils % (A) 6 %; HCT 41.4 % (39.0-53.0); HGB 13.7 gm/dL (13.0-17.5); Lymphocytes # (A) 1.2 k/uL (1.0-4.8); Lymphocytes % (A) 29 %; MCH 30.4 pg (25.0-35.0); MCHC 33.1 g/dL (31.0-37.0); MCV 91.6 fL (80.0-100.0); Mean Platelet Volume 7.9; Monocytes # (A) 0.3 k/uL (0-1.0); Monocytes % (A) 7 %; Neutrophils # (A) 2.4 k/uL (1.3-7.7); Neutrophils % (A) 56 %; Platelet Count 142 k/uL (150-450); RBC 4.51 m/uL (4.30-5.90); RDW 13.2 % (11.5-15.5); WBC 4.3 k/uL (3.8-10.6)
[2021-08-12 14:19] LABS: Albumin 3.6 g/dL (3.5-5.0); Magnesium 1.8 mg/dL (1.6-2.3); Potassium 4.4 mmol/L (3.5-5.1); Prothrombin Time 10.5 sec (9.0-12.0); Total Bilirubin 0.3 mg/dL (0.2-1.3); Total Protein 6.3 g/dL (6.3-8.2)
[2021-08-12] MEDS ORDERED: HEPARIN SODIUM 1,000 UN/ML (10ML VL) IV ONE (14:30)
[2021-08-12] MEDS ORDERED: HEPARIN SODIUM 1,000 UN/ML (10ML VL) IV PRN (14:30)
[2021-08-12] MEDS ORDERED: HEPARIN SOD,PORK IN 0.45% NACL 25,000 UNIT in 0.45% NACL 1 250ML.BAG IV SCH (14:30)
[2021-08-12] MEDS ORDERED: NITROGLYCERIN SL TABS 0.4 MG TAB SUBLINGUAL PRN (14:34)
--- NOTE | 2021-08-12 15:46 | HP ---
HISTORY AND PHYSICAL DATE OF SERVICE: 08/12/2021. CHIEF COMPLAINT: Chest pain. HISTORY OF PRESENT ILLNESS: This 71-year-old gentleman with a past medical history of multiple medical problems, including diabetes mellitus, hypertension, history of myocardial infarction, history of CAD, stent, being followed by Dr. Reddy as well as [facility] in the outpatient setting, recently had a positive stress test in [place], and the patient checked in the day before yesterday with chest pain to [facility]; however, the patient felt much better and Cardiology cleared the patient for discharge. The patient went home. After going home, the patient felt retrosternal discomfort which was more like a pressure type of sensation. Patient came to [facility] and has been admitted for further evaluation and treatment. Initial troponins are negative. EKG which I reviewed personally showed right block. There is no history of any fever, rigor or chills at this time. PAST MEDICAL HISTORY: History of CAD, stent, history of diabetes mellitus, hypertension, history of myocardial infarction. HOME MEDICATIONS: Glucophage, Ranexa, Mysoline, Nitrostat, Lopressor, Proscar, aspirin. Doses are reviewed. ALLERGIES: NONE. FAMILY HISTORY: No history of heart disease or strokes in the family. SOCIAL HISTORY: No history of smoking. Occasional alcohol intake. REVIEW OF SYSTEMS: ENT: No diminished hearing. No diminished vision. CARDIOVASCULAR SYSTEM: As mentioned earlier. RESPIRATORY SYSTEM: As mentioned earlier. GI: No nausea, vomiting, diarrhea. : No dysuria. NERVOUS SYSTEM: No numbness, weakness. ALLERGY/IMMUNOLOGY: No asthma or hay fever. MUSCULOSKELETAL: As mentioned earlier. HEMATOLOGY/ONCOLOGY: No history of anemia. ENDOCRINE: As mentioned earlier. CONSTITUTIONAL: As mentioned earlier. DERMATOLOGY: Negative. RHEUMATOLOGY: Negative. PSYCHIATRY: As mentioned earlier. PHYSICAL EXAMINATION: Alert and oriented x3. Pulse 70, blood pressure 131/64, respiration 18, temperature 97.9, pulse ox 98% on room air. HEENT: Conjunctivae normal. Oral mucosa moist. NECK: No jugular venous distention. No carotid bruit. No lymph node enlargement. CARDIOVASCULAR: S1, S2 muffled. RESPIRATION: Breath sounds diminished at the bases. No rhonchi. No crackles. ABDOMEN: Soft, nontender. No mass palpable. LEGS: No edema. No swelling. NERVOUS SYSTEM: Higher functions as mentioned earlier. Moves all 4 limbs. No focal motor or sensory deficit. LYMPHATICS: No lymph node palpable in neck, axillae or groin. SKIN: No ulcer, rash, bleeding. JOINTS: No active deforming arthropathy. LABS: WBC ntd, hemoglobin 13.7, platelets 142. Sodium 139, potassium 4.4. ASSESSMENT: 1. Chest pain, possible unstable angina. 2. Negative positive stress test. 3. Elevated random glucose. 4. History of coronary artery disease, stent. 5. Diabetes mellitus, type 2. 6. Hypertension. 7. History of myocardial infarction. 8. FULL CODE. RECOMMENDATIONS AND DISCUSSION: In this 71-year-old gentleman who presented with multiple complex medical issues, we will monitor the patient closely, continue the current medication, continue the heparin, continue with unstable angina protocol. Cardiology consultation. Possible cardiac cath. Prognosis guarded. Will resume the home medications. Prognosis is guarded because of multiple complex medical issues. Further recommendations to follow. MMODL / IJN: [id number] / ROBERT
[2021-08-12 16:42] LABS: Glucose,Whole Blood 117 mg/dL (75-99)
[2021-08-12] MEDS: INSULIN ASPART (NovoLOG) 100 UNIT/ML VIAL SQ SCH ×2 (16:51→20:32)
[2021-08-12 19:41] LABS: Glucose,Whole Blood 181 mg/dL (75-99)
[2021-08-12] MEDS: METOPROLOL TARTRATE 50 MG TAB PO SCH (20:31)
[2021-08-12] MEDS: PRIMIDONE 50 MG TAB PO SCH (20:31)
[2021-08-12 23:54] LABS: Appearance,Urine Clear (Clear); Bilirubin,Urine Negative (Negative); Blood,Urine Negative (Negative); Color,Urine Yellow; Glucose,Urine (UA) Trace (Negative); Ketones,Urine Negative (Negative); Leukocyte Esterase,Urine Negative (Negative); Nitrite,Urine Negative (Negative); Protein,Urine Negative (Negative); Specific Gravity,Urine 1.022 (1.001-1.035); Urobilinogen,Urine <2.0 mg/dL (<2.0)
[2021-08-13 05:11] LABS: Partial Thromboplastin Time 52.4 sec (22.0-30.0); Prothrombin Time 10.7 sec (9.0-12.0)
[2021-08-13 07:42] LABS: Glucose,Whole Blood 162 mg/dL (75-99)
[2021-08-13] MEDS ORDERED: ALPRAZolam 0.5 MG TAB PO PRN (08:02)
[2021-08-13] MEDS ORDERED: ALPRAZolam 0.25 MG TAB PO PRN (08:02)
[2021-08-13] MEDS ORDERED: ATORVASTATIN 80 MG TAB PO STA (08:02)
[2021-08-13] MEDS ORDERED: ASPIRIN 325 MG TAB PO STA (08:02)
[2021-08-13] MEDS: INSULIN ASPART (NovoLOG) 100 UNIT/ML VIAL SQ SCH ×4 (08:48→21:41)
--- NOTE | 2021-08-13 08:52 | P.CRDCN ---
History of Present Illness History of present illness: HISTORY OF PRESENTING ILLNESS This is a pleasant 71-year-old male past medical history significant for artery artery disease with multiple PCI in the past according to the patient 16 stents and 9 MIs, hypertension, dyslipidemia and diabetes mellitus. He follows in the office with a cna pct at the [place]. We have been asked to see in consultation for chest pain. He was seen and evaluated on the of this month by Dr. Martinez for chest discomfort and catheterization was recommended at that time due to an abnormal stress test at the [place] according to the patient. No records were ever reviewed. The patient decided he would prefer medical treatment and to follow-up at the [place] after the holidays. He was discharged in stable condition. He states initially he had no symptoms of chest discomfort for the first day after discharge but then yesterday morning woke up with a discomfort in his chest again. The symptoms were persistent with no improvement prompting him to come back to the hospital. EKG on arrival revealed sinus rhythm with a right bundle branch block heart rate of 61. Chest x-ray was negative for acute cardiopulmonary process. Laboratory data reviewed, first 3 troponins were negative and fourth one was 0.045, creatinine 1.19. Current daily cardiac medications include Lopressor 50 mg twice a day, aspirin 81 mg daily and Ranexa 500 mg twice a day. On previous admission he did have an echocardiogram revealing preserved LV systolic function with ejection fraction 60-65%. REVIEW OF SYSTEMS At the time of my exam: CONSTITUTIONAL: Denies fever or chills. CARDIOVASCULAR: Denies chest pain, shortness of breath, orthopnea, PND or palpitations. RESPIRATORY: Denies cough. GASTROINTESTINAL: Denies abdominal pain, diarrhea, constipation, nausea or vomiting. MUSCULOSKELETAL: Denies myalgias. NEUROLOGIC: Denies numbness, tingling, headache or weakness. ENDOCRINE: Denies fatigue, weight change, polydipsia or polyurina. GENITOURINARY: Denies burning, hematuria or urgency with micturation. HEMATOLOGIC: Denies history of anemia or bleeding. PHYSICAL EXAMINATION Blood pressure 164/83 heart rate 68 afebrile and maintaining oxygen saturation on room air. CONSTITUTIONAL: No apparent distress. HEENT: Head is normocephalic. Pupils are equal, round. Sclerae anicteric. Mucous membranes of the mouth are moist. No JVD. No carotid bruit. CHEST EXAMINATION: Lungs are clear to auscultation. No chest wall tenderness is noted on palpation or with deep breathing. HEART EXAMINATION: Regular rate and rhythm. S1, S2 heard. No murmurs, gallops or rub. ABDOMEN: Soft, nontender. EXTREMITIES: 2+ peripheral pulses, no lower extremity edema and no calf tenderness. NEUROLOGIC EXAMINATION: Patient is awake, alert and oriented x3. ASSESSMENT NSTEMI CAD Hypertension Dyslipidemia Diabetes mellitus PLAN Recommend proceeding with cardiac catheterization. I have discussed the risks, benefits and alternative therapies for the above-mentioned procedure and for both sedation/analgesia as well as necessary blood product administration, if indicated, as they pertain to this patient. The patient has indicated understanding and acceptance of the risks and procedures discussed. Questions have been answered appropriately. He is agreeable to move forward with the above stated procedure. Procedure will be at 10 AM, discontinue heparin infusion now. Request records from the [place] for review of recent stress test and most recent cath was 2014. Check baseline lipid profile. Further recommendations to follow based upon clinical course. Thank you kindly for this consultation. Nurse Practitioner note has been reviewed, I agree with a documented findings and plan of care. Patient was seen and examined. Past Medical History Past Medical History: Chest Pain / Angina, Diabetes Mellitus, Hypertension, Myocardial Infarction ([place]) Last Myocardial Infarction Date:: 2014 History of Any Multi-Drug Resistant Organisms: None Reported Past Surgical History: Heart Catheterization, Heart Catheterization With Stent Past Anesthesia/Blood Transfusion Reactions: No Reported Reaction Date of Last Stent Placement:: 2014 Past Psychological History: No Psychological Hx Reported Smoking Status: Former smoker Past Alcohol Use History: Occasional Past Drug Use History: None Reported - Past Family History Father Family Medical History: Cancer Mother Family Medical History: Myocardial Infarction ([place]) Medications and Allergies Home Medications Medication Instructions Recorded Confirmed Type Aspirin 81 mg PO DAILY 08/10/21 08/12/21 History Finasteride [Proscar] 5 mg PO DAILY 08/10/21 08/12/21 History Metoprolol Tartrate [Lopressor] 50 mg PO BID 08/10/21 08/12/21 History Primidone [Mysoline] 50 mg PO HS 08/10/21 08/12/21 History Ranolazine [Ranexa] 500 mg PO BID 08/10/21 08/12/21 History metFORMIN HCL [Glucophage] 1,000 mg PO DAILY 08/10/21 08/12/21 History Nitroglycerin Sl Tabs [Nitrostat] 0.4 mg SUBLINGUAL Q5M PRN #100 tab 08/11/21 08/12/21 Rx Allergies Allergy/AdvReac Type Severity Reaction Status Date / Time No Known Allergies Allergy Verified 08/12/21 14:02 Physical Exam Vitals: Vital Signs Temp Pulse Pulse Resp BP BP Pulse Ox 08/13/21 07:00 97.9 F 68 18 164/83 99 08/13/21 01:00 97.5 F L 98 16 131/70 98 08/12/21 20:00 98.3 F 69 16 138/78 97 08/12/21 15:00 97.5 F L 71 20 131/76 98 08/12/21 14:53 53 L 18 119/75 97 08/12/21 12:45 97.9 F 70 18 131/64 98 Intake and Output 08/12/21 08/13/21 08/13/21 22:59 06:59 14:59 Intake Total 59.75 91.035 Balance 59.75 91.035 Intake: Intake, IV Titration 59.75 91.035 Amount Heparin Sod,Pork in 0.45% 59.75 91.035 NaCl 25,000 unit In 0.45 % NaCl 1 250ml.bag @ 11.9 UNITS/KG/HR 9.986 mls/hr IV .Q24H [facility] Rx#: [id number] Other: # Voids 2 1 Weight 83.915 kg Results 08/12/21 13:30 08/12/21 13:30 Cardiac Enzymes 08/12/21 08/12/21 08/12/21 Range/Units 13:30 13:30 17:05 AST 20 (17-59) U/L Troponin I <0.012 <0.012 (0.000-0.034) ng/mL 08/12/21 08/13/21 Range/Units 20:31 04:29 AST (17-59) U/L Troponin I <0.012 0.045 H* (0.000-0.034) ng/mL Coagulation 08/12/21 08/12/21 08/13/21 Range/Units 13:30 20:31 04:29 PT 10.5 10.7 (9.0-12.0) sec APTT 23.0 40.5 H 52.4 H (22.0-30.0) sec CBC 08/12/21 Range/Units 13:30 WBC 4.3 (3.8-10.6) k/uL RBC 4.51 (4.30-5.90) m/uL Hgb 13.7 (13.0-17.5) gm/dL Hct 41.4 (39.0-53.0) % Plt Count 142 L (150-450) k/uL Comprehensive Metabolic Panel 08/12/21 Range/Units 13:30 Sodium 139 (137-145) mmol/L Potassium 4.4 (3.5-5.1) mmol/L Chloride 106 (98-107) mmol/L Carbon Dioxide 27 (22-30) mmol/L BUN 27 H (9-20) mg/dL Creatinine 1.19 (0.66-1.25) mg/dL Glucose 199 H (74-99) mg/dL Calcium 10.0 (8.4-10.2) mg/dL AST 20 (17-59) U/L ALT 16 (4-49) U/L Alkaline Phosphatase 79 (38-126) U/L Total Protein 6.3 (6.3-8.2) g/dL Albumin 3.6 (3.5-5.0) g/dL Current Medications Generic Name Dose Route Start Last Admin Trade Name Freq PRN Reason Stop Dose Admin Alprazolam 0.25 mg 08/13/21 08:02 Alprazolam 0.25 Mg Tab PO Q6HR PRN Mild Anxiety Alprazolam 0.5 mg 08/13/21 08:02 Alprazolam 0.5 Mg Tab PO Q6HR PRN Moderate Anxiety Aspirin 81 mg 08/13/21 09:00 Aspirin 81 Mg PO DAILY [facility] Atorvastatin Calcium 40 mg 08/13/21 09:00 Atorvastatin 40 Mg Tab PO DAILY [facility] Finasteride 5 mg 08/13/21 09:00 Finasteride 5 Mg Tab PO DAILY [facility] Heparin Sodium (Porcine) 0 unit 08/12/21 14:30 08/12/21 21:08 Heparin Sodium 1,000 Un/Ml (10ml Vl) IV 2,097 unit PER PROTOCOL PRN Administration Low PTT Protocol Sodium Chloride 1,000 mls @ 20 mls/hr 08/12/21 13:45 08/12/21 14:22 Saline 0.9% IV 20 mls/hr .Q24H [facility] Administration Heparin Sodium/Sodium Chloride 250 mls @ 9.986 mls/hr 08/12/21 14:30 08/13/21 04:40 25,000 unit/ Sodium Chloride IV 14.18 units/kg/hr .Q24H [facility] 11.9 mls/hr Titration Protocol 11.9 UNITS/KG/HR Sodium Chloride 1,000 ml/ IV 1,000 mls @ 83.915 mls/hr 08/13/21 08:15 Solution IV .[id number] MATTHIAS 1 ML/KG/HR Heparin Sodium (Porcine) 10, 1,001 mls @ 999 mls/hr 08/14/21 07:00 000 unit/ Sodium Chloride IRRIGATION 08/14/21 23:00 ONCE PRN INTRA-OP Heparin Sodium (Porcine) 2,500 250.5 mls @ 250 mls/hr 08/14/21 07:00 unit/ Sodium Chloride IRRIGATION 08/14/21 23:00 ONCE PRN INTRA-OP Insulin Aspart 0 unit 08/12/21 17:30 08/12/21 20:32 Insulin Aspart (Novolog) 100 Unit/Ml Vial SQ 2 unit ACHS MATTHIAS Administration Protocol Metoprolol Tartrate 50 mg 08/12/21 21:00 08/12/21 20:31 Metoprolol Tartrate 50 Mg Tab PO 50 mg BID [facility]IAS Administration Morphine Sulfate 4 mg 08/12/21 13:32 Morphine Sulfate 4 Mg/Ml Syringe IV Q4HR PRN Severe Pain Naloxone HCl 0.2 mg 08/12/21 13:32 Naloxone 0.4 Mg/Ml 1 Ml Vial IV Q2M PRN Opioid Reversal Nitroglycerin 0.4 mg 08/12/21 14:34 Nitroglycerin Sl Tabs 0.4 Mg Tab SUBLINGUAL Q5M PRN Chest Pain Ondansetron HCl 4 mg 08/12/21 13:32 Ondansetron 4 Mg/2 Ml Vial IVP Q8HR PRN Nausea And Vomiting Primidone 50 mg 08/12/21 21:00 08/12/21 20:31 Primidone 50 Mg Tab PO 50 mg HS MATTHIAS Administration Intake and Output 08/12/21 08/13/21 08/13/21 22:59 06:59 14:59 Intake Total 59.75 91.035 Balance 59.75 91.035 Intake: Intake, IV Titration 59.75 91.035 Amount Heparin Sod,Pork in 0.45% 59.75 91.035 NaCl 25,000 unit In 0.45 % NaCl 1 250ml.bag @ 11.9 UNITS/KG/HR 9.986 mls/hr IV .Q24H [facility] Rx#: [id number] Other: # Voids 2 1 Weight 83.915 kg 08/12/21 13:30 08/12/21 13:30
[2021-08-13] MEDS: METOPROLOL TARTRATE 50 MG TAB PO SCH ×2 (08:56→21:39)
[2021-08-13] MEDS: FINASTERIDE 5 MG TAB PO SCH (08:56)
[2021-08-13] MEDS: SODIUM CHLORIDE 0.9% 1,000 ML in EMPTY BAG 1 BAG IV SCH ×2 (08:58→21:43)
[2021-08-13 08:59] LABS: Basophils # (A) 0.04 X 10*3/uL (0.00-0.10); Basophils % (A) 0.9 %; Eosinophils # (A) 0.27 X 10*3/uL (0.04-0.35); Eosinophils % (A) 5.7 %; HCT 39.9 % (39.6-50.0); HGB 12.7 g/dL (13.0-17.0); Lymphocytes # (A) 1.59 X 10*3/uL (0.90-5.00); Lymphocytes % (A) 33.8 %; MCH 29.6 pg (27.0-32.0); MCHC 31.8 g/dL (32.0-37.0); Mean Platelet Volume 11.1 fL (9.5-12.2); Monocytes # (A) 0.36 X 10*3/uL (0.20-1.00); Monocytes % (A) 7.7 %; Neutrophils # (A) 2.43 X 10*3/uL (1.80-7.70); Neutrophils % (A) 51.7 %; Platelet Count 135 X 10*3/uL (140-440); RBC 4.29 X 10*6/uL (4.40-5.60); RDW 13.7 % (11.5-14.5)
[2021-08-13] MEDS ORDERED: ASPIRIN 81 MG PO SCH (09:00)
[2021-08-13] MEDS ORDERED: ATORVASTATIN 40 MG TAB PO SCH (09:00)
[2021-08-13] MEDS ORDERED: HEPARIN SODIUM 1,000 UN/ML (10ML VL) ONE (09:29)
[2021-08-13] MEDS ORDERED: IV FLUID CONTINUATION 650 ML IV ONE (09:52)
[2021-08-13] MEDS ORDERED: MIDAZOLAM 2 MG/2 ML VIAL IV ONE (10:16)
[2021-08-13] MEDS ORDERED: LIDOCAINE 1% INJ 10MG/ML (20 ML MDV) SQ ONE (10:18)
[2021-08-13] MEDS: HEPARIN SODIUM 1,000 UN/ML (10ML VL) IV ONE ×2 (10:22→11:22)
[2021-08-13] MEDS ORDERED: VERAPAMIL SYRINGE (5 MG/10 ML) INTRAARTER ONE (10:23)
[2021-08-13] MEDS ORDERED: IOPAMIDOL-370 100ML BTL INJ ONE (10:48)
[2021-08-13] MEDS ORDERED: CLOPIDOGREL 75 MG TAB ONE (10:51)
[2021-08-13] MEDS ORDERED: CLOPIDOGREL 75 MG TAB PO ONE (10:56)
[2021-08-13] MEDS: NITROGLYCERIN 1000MCG/10ML SYRINGE INTRACORON ONE ×3 (10:58→11:14)
[2021-08-13 11:53] LABS: African American GFR (CKD) 57.4 (60.0-200.0); Anion Gap 9.1 mmol/L (10.00-18.00); BUN/Creat Ratio 18.57 Ratio (12.00-20.00); Calcium 9.5 mg/dL (8.7-10.3); Carbon Dioxide 24.9 mmol/L (20.0-27.5); Non-African American GFR(CKD) 49.5 (60.0-200.0); Potassium 4.3 mmol/L (3.5-5.5)
[2021-08-13] MEDS ORDERED: NITROGLYCERIN SL TABS 0.4 MG TAB SUBLINGUAL PRN (11:55)
--- NOTE | 2021-08-13 12:05 | CC ---
CARDIAC CATHETERIZATION REPORT DATE OF SERVICE: 08/13/2021. PROCEDURE: 1. Left heart catheterization and coronary angiography. 2. PTCA and stenting of proximal and mid circumflex coronary artery. 3. PTCA and stenting of mid LAD and in-stent restenotic lesion with drug-eluting stent. PERFORMED BY: Dr. Paulie Santoyo. Moderate conscious sedation time was 65 minutes. The patient was administered Versed. Oxygen saturation, hemodynamics and EKG with monitored closely. CLINICAL INFORMATION: Mr. Kiko Ac is a 71-year-old gentleman, a who has all his healthcare at the [facility]. He has history of CAD, diabetes, hypertension, and hyperlipidemia. He underwent multivessel stenting performed at [place] last one was in 2014, details are not available. He came into the hospital on August 10 with chest pain, was advised cardiac cath, refused, went home, had recurrent chest. He came back into the hospital, had mild elevation of troponin suggestive of non-ST elevation SD. He was seen by Dr. Martinez on August 10. I evaluated this morning, advised cardiac cath given his presentation symptoms and his elevated troponin. Explained to him the rationale, risks, benefits, and options. He understood all details and wished to proceed with the procedure. PROCEDURE NOTE: Under local anesthesia and strict aseptic precautions, a 6-Wolof sheath was placed in the right radial artery. Using a JR4 and JL 3.5 catheters, I performed selective coronary angiography and the same right Glenny catheter was used to check LV pressure but LV gram was not performed. I then went ahead and proceeded to perform PCI of circumflex vessel in two areas and the mid LAD, which was the restenotic lesion. Following multivessel stenting, the sheath was taken out and TR band applied as per protocol and patient was sent to the room in stable condition. Saturation of the fingers of the right hand was 95%. CARDIAC CATHETERIZATION FINDINGS: The left ventricular end-diastolic pressure was 10 mmHg without any gradient across aortic valve. CORONARY ANGIOGRAPHY FINDINGS: RIGHT CORONARY ARTERY: This is a dominant diffusely diseased vessel proximally has about a 40% narrowing in the midportion. There is a stent within the stent there is another 40% narrowing. Afterwards the caliber improves and bifurcates into PDA and PLV, both of which are of good caliber and distribution and supply a sizable amount of myocardium. The RCA therefore has disease of about 40% to 45% in the proximal and mid portion within the previous stent but no significant critical lesions. LEFT MAIN CORONARY ARTERY: Short, patent disease-free vessel that immediately bifurcates into LAD and circumflex. LEFT ANTERIOR DESCENDING CORONARY ARTERY: This vessel was stented extensively. Within stented area, which is a very long area starting from the proximal to the distal LAD, the midportion has a 75% narrowing with somewhat sluggish flow and the diagonal that comes off from the area also is subtotally occluded. This represents a restenotic lesion of about 75% or more with somewhat of a sluggish flow. The distal LAD right at the apex also has another subtotal area of narrowing, but it is very distal and beyond it curves over the apex to supply the inferoapical lateral myocardium. Mid LAD therefore has a restenotic 75% lesion. LEFT POSTERIOR CIRCUMFLEX CORONARY ARTERY: Nondominant vessel appears to have been stented, but I cannot be sure on this. There is a lot of calcium within the stent. Proximally there is a 95% stenosis. Mid there is a 75% stenosis within the nondominant circumflex, which is of good caliber and distribution. Left ventriculogram was not performed. FINAL IMPRESSION: This patient has normal filling pressures. No gradient. He has a right dominant system with a restenotic lesion of about 45% in the mid RCA and also a de Lavell lesion in the proximal RCA. Both of these are noncritical. Left main is normal. LAD has a mid in-stent restenosis of about 75%. Circumflex has a proximal 95% and mid 75% lesion. Nondominant circumflex. RECOMMENDATIONS: I recommended PCI of circumflex and LAD and proceeded to perform this in the same setting. PCI PROCEDURE DETAILS: A JL 3.5 guide catheter was used to cannulate the left coronary artery and a Whisper wire was used to cross the lesion in the circumflex. Wire was kept distally. A 2.5 caliber 12 mm long NC Trek balloon was used to pre dilate both the lesions and circumflex. The distal area was stented with a 3.0 caliber 12 Xience stent and proximal was addressed with a 3.25 caliber 8 mm long Xience stent. Patient had chest pain, but no EKG changes. Excellent angiographic result was achieved without complication. I then advanced the stent into the distal LAD and I performed predilatation of the area of stenosis with a 20 mm long 3.5 caliber NC Trek balloon. There was modest improvement. I then deployed a 4.0 caliber 18 mm long Xience stent at 14 atmospheres. Patient had chest pain, but no EKG changes. Excellent angiographic result was achieved. The distal LAD lesion persisted, but we will treat that medically. The mid lesion results were excellent. Remarkably good flow was noted. Patient had excellent angiographic result. There was TOBY-3 flow. No chest pain. Findings were discussed with the patient. Images were reviewed with the patient. No family available. I spoke to his daughter by phone. The sheath was taken out and TR band applied. He received 600 mg of Plavix. He also received heparin and ACT was variable, but the last ACT was 228. Prior to that, it was over 300. I gave additional 1000 units and ACT was 228. Patient will be hopefully discharged tomorrow if he remains stable. MMODL / IJN: [id number] /
[2021-08-13] MEDS: SODIUM CHLORIDE 0.9% 1,000 ML IV SCH (12:15)
[2021-08-13 12:24] LABS: Glucose,Whole Blood 165 mg/dL (75-99)
[2021-08-13 12:40] VITALS: RESP 16
[2021-08-13] MEDS: LOSARTAN 25 MG TAB PO SCH ×2 (13:04→21:40)
--- NOTE | 2021-08-13 14:01 | P.PN ---
Subjective Progress Note Date: 08/13/21 This is a 71-year-old male who was recently admitted with chest pain and cardiology following as patient had an abnormal stress test in [place] recently. Patient is scheduled for cardiac catheterization this morning will await report. Patient having intermittent chest pain denies any palpitations or shortness of breath at this time. Labs: White blood count is 4.7, hemoglobin is 12.7, platelets are 135, INR is 1.0, sodium is 142, potassium is 4.3, creatinine is 1.4, repeat troponin 0.045 Review of systems: Constitutional: No reports of fatigue, fever, or chills Cardiovascular: reports intermittent periods of chest pain Respiratory: No reports of shortness of breath or cough GI: No reports of nausea, vomiting, or diarrhea : No reports of dysuria or retention Neurovascular: No reports of weakness or numbness All medications have been reviewed Active Medications Alprazolam (Alprazolam 0.25 Mg Tab) 0.25 mg PO Q6HR PRN PRN Reason: Mild Anxiety Alprazolam (Alprazolam 0.5 Mg Tab) 0.5 mg PO Q6HR PRN PRN Reason: Moderate Anxiety Aspirin (Aspirin 81 Mg) 81 mg PO DAILY [facility] Atorvastatin Calcium (Atorvastatin 80 Mg Tab) 80 mg PO HS [facility] Clopidogrel Bisulfate (Clopidogrel 75 Mg Tab) 75 mg PO DAILY [facility] Finasteride (Finasteride 5 Mg Tab) 5 mg PO DAILY [facility] Last Admin: 08/13/21 08:56 Dose: 5 mg Documented by: Sodium Chloride 1,000 ml/ IV (Solution) 1,000 mls @ 83.915 mls/hr IV .[id number] [facility] Last Admin: 08/13/21 08:58 Dose: 83.915 mls/hr Documented by: Heparin Sodium (Porcine) 2,500 (unit/ Sodium Chloride) 250.5 mls @ 250 mls/hr IRRIGATION ONCE PRN PRN Reason: INTRA-OP Stop: 08/14/21 23:00 Sodium Chloride (Saline 0.9%) 1,000 mls @ 75 mls/hr IV .[id number] [facility] Stop: 08/14/21 06:16 Last Admin: 08/13/21 12:15 Dose: 75 mls/hr Documented by: Insulin Aspart (Insulin Aspart (Novolog) 100 Unit/Ml Vial) 0 unit SQ ACHS [facility]; Protocol Last Admin: 08/13/21 13:07 Dose: 1 unit Documented by: Losartan Potassium (Losartan 25 Mg Tab) 25 mg PO [facility] Last Admin: 08/13/21 13:04 Dose: 25 mg Documented by: Metoprolol Tartrate (Metoprolol Tartrate 50 Mg Tab) 50 mg PO BID [facility] Last Admin: 08/13/21 08:56 Dose: 50 mg Documented by: Morphine Sulfate (Morphine Sulfate 4 Mg/Ml Syringe) 4 mg IV Q4HR PRN PRN Reason: Severe Pain Naloxone HCl (Naloxone 0.4 Mg/Ml 1 Ml Vial) 0.2 mg IV Q2M PRN PRN Reason: Opioid Reversal Nitroglycerin (Nitroglycerin Sl Tabs 0.4 Mg Tab) 0.4 mg SUBLINGUAL Q5M PRN PRN Reason: Chest Pain Ondansetron HCl (Ondansetron 4 Mg/2 Ml Vial) 4 mg IVP Q8HR PRN PRN Reason: Nausea And Vomiting Primidone (Primidone 50 Mg Tab) 50 mg PO [facility] Last Admin: 08/12/21 20:31 Dose: 50 mg Documented by: Ranolazine (Ranolazine 500 Mg Tab.Er.12h) 500 mg PO BID [facility] Physical exam: Gen: This is a 71-year-old male awake, alert and oriented 3, well developed, well-nourished. Temp is 97.9F, pulse is 68, respirations are 18, blood pressure is 164/83, oxygen saturation is 99% on room air. HEENT: Head is atraumatic, normocephalic. Pupils equal, round. Sclerae is anicteric. NECK: Supple. No JVD. No lymphadenopathy. No thyromegaly. LUNGS: Breath sounds diminished at the bases with no wheezing or rhonchi noted. No intercostal retractions. HEART: S1, S2 are muffled ABDOMEN: Soft. Bowel sounds are present. No masses. No tenderness. EXTREMITIES: No pedal edema. No calf tenderness. NEUROLOGICAL: Patient is awake, alert and oriented x3. Cranial nerves 2 through 12 are grossly intact. Assessment: Chest pain, possible unstable angina Negative positive stress test in the outpatient setting Elevated random glucose. history of coronary artery disease, stent Diabetes mellitus type 2 Hypertension History of myocardial infarction Full code Plan: Recommend continue with current medications and management and symptomatic treatment. Cardiology evaluated the patient this morning recommending cardiac catheterization and will await report. Cardiology following closely and patient will need close outpatient follow-up on discharge. Will continue to monitor closely and repeat a.m. labs. Will discuss further with cardiology about treatment plan moving forward with possible discharge in 24-48 hours. Patient requiring more than 2 night hospitalization stay given the severity of his symptoms and continued ongoing chest pain and awaiting cardiology report. further recommendations to follow based on the clinical course of the patient. Objective - Vital Signs Vital signs: Vital Signs Temp 97.9 F 08/13/21 07:00 Pulse 68 08/13/21 07:00 Resp 18 08/13/21 07:00 BP 164/83 08/13/21 07:00 Pulse Ox 99 08/13/21 07:00 Intake & Output 08/12/21 08/13/21 08/13/21 18:59 06:59 18:59 Intake Total 150.785 Balance 150.785 Weight 83.915 kg Intake: Intake, IV Titration 150.785 Amount Heparin Sod,Pork in 0.45% 150.785 NaCl 25,000 unit In 0.45 % NaCl 1 250ml.bag @ 11.9 UNITS/KG/HR 9.986 mls/hr IV .Q24H [facility] Rx#: [id number] Other: # Voids 1 - Labs CBC & Chem 7: 08/13/21 04:29 08/13/21 04:29 Labs: Abnormal Lab Results - Last 24 Hours (Table) 08/12/21 08/12/21 08/12/21 Range/Units 13:30 13:30 16:40 RBC (4.40-5.60) X 10*6/uL Hgb (13.0-17.0) g/dL MCHC (32.0-37.0) g/dL Plt Count 142 L (150-450) k/uL APTT (22.0-30.0) sec BUN 27 H (9-20) mg/dL Glucose 199 H (74-99) mg/dL POC Glucose (mg/dL) 117 H (75-99) mg/dL Troponin I (0.000-0.034) ng/mL Urine Glucose (UA) (Negative) 08/12/21 08/12/21 08/12/21 Range/Units 19:40 20:31 23:41 RBC (4.40-5.60) X 10*6/uL Hgb (13.0-17.0) g/dL MCHC (32.0-37.0) g/dL Plt Count (150-450) k/uL APTT 40.5 H (22.0-30.0) sec BUN (9-20) mg/dL Glucose (74-99) mg/dL POC Glucose (mg/dL) 181 H (75-99) mg/dL Troponin I (0.000-0.034) ng/mL Urine Glucose (UA) Trace H (Negative) 08/13/21 08/13/21 08/13/21 Range/Units 04:29 04:29 04:29 RBC 4.29 L (4.40-5.60) X 10*6/uL Hgb 12.7 L (13.0-17.0) g/dL MCHC 31.8 L (32.0-37.0) g/dL Plt Count 135 L (150-450) k/uL APTT 52.4 H (22.0-30.0) sec BUN (9-20) mg/dL Glucose (74-99) mg/dL POC Glucose (mg/dL) (75-99) mg/dL Troponin I 0.045 H* (0.000-0.034) ng/mL Urine Glucose (UA) (Negative) 08/13/21 Range/Units 07:40 RBC (4.40-5.60) X 10*6/uL Hgb (13.0-17.0) g/dL MCHC (32.0-37.0) g/dL Plt Count (150-450) k/uL APTT (22.0-30.0) sec BUN (9-20) mg/dL Glucose (74-99) mg/dL POC Glucose (mg/dL) 162 H (75-99) mg/dL Troponin I (0.000-0.034) ng/mL Urine Glucose (UA) (Negative)
[2021-08-13 17:15] LABS: Glucose,Whole Blood 187 mg/dL (75-99)
[2021-08-13 20:41] LABS: Glucose,Whole Blood 177 mg/dL (75-99)
[2021-08-13] MEDS ORDERED: ATORVASTATIN 80 MG TAB PO SCH (21:00)
[2021-08-13] MEDS ORDERED: LOSARTAN 25 MG TAB PO SCH (21:00)
[2021-08-13] MEDS: RANOLAZINE 500 MG TAB.ER.12H PO SCH (21:39)
[2021-08-13] MEDS: PRIMIDONE 50 MG TAB PO SCH (21:41)
[2021-08-14] MEDS: SODIUM CHLORIDE 0.9% 1,000 ML IV SCH (02:29)
[2021-08-14 06:15] LABS: Glucose,Whole Blood 131 mg/dL (75-99)
[2021-08-14] MEDS: INSULIN ASPART (NovoLOG) 100 UNIT/ML VIAL SQ SCH ×2 (06:20→12:41)
[2021-08-14] MEDS ORDERED: HEPARIN SODIUM,PORCINE 10,000 UNIT in SODIUM CHLORIDE 0.9% 1,000 ML IRRIGATION PRN (07:00)
[2021-08-14] MEDS ORDERED: HEPARIN SODIUM,PORCINE 2,500 UNIT in SODIUM CHLORIDE 0.9% 250 ML IRRIGATION PRN (07:00)
[2021-08-14] MEDS: SODIUM CHLORIDE 0.9% 1,000 ML in EMPTY BAG 1 BAG IV SCH (08:08)
[2021-08-14] MEDS: FINASTERIDE 5 MG TAB PO SCH (08:10)
[2021-08-14] MEDS: METOPROLOL TARTRATE 50 MG TAB PO SCH (08:10)
[2021-08-14] MEDS: RANOLAZINE 500 MG TAB.ER.12H PO SCH (08:10)
[2021-08-14 08:56] LABS: Basophils % (A) 1 %; Eosinophils # (A) 0.3 k/uL (0-0.7); Eosinophils % (A) 5 %; HCT 41.4 % (39.0-53.0); HGB 13.9 gm/dL (13.0-17.5); Lymphocytes # (A) 1.9 k/uL (1.0-4.8); Lymphocytes % (A) 31 %; MCH 30.1 pg (25.0-35.0); MCHC 33.6 g/dL (31.0-37.0); MCV 89.5 fL (80.0-100.0); Monocytes # (A) 0.3 k/uL (0-1.0); Monocytes % (A) 6 %; Neutrophils # (A) 3.3 k/uL (1.3-7.7); Neutrophils % (A) 55 %; Platelet Count 126 k/uL (150-450); RBC 4.63 m/uL (4.30-5.90); RDW 13.3 % (11.5-15.5)
[2021-08-14] MEDS ORDERED: ATORVASTATIN 40 MG TAB PO SCH (09:00)
[2021-08-14] MEDS ORDERED: CLOPIDOGREL 75 MG TAB PO SCH (09:00)
[2021-08-14] MEDS ORDERED: ASPIRIN 81 MG PO SCH ×2 (09:00)
[2021-08-14 09:11] LABS: Calcium 9.8 mg/dL (8.4-10.2); Potassium 4.8 mmol/L (3.5-5.1)
[2021-08-14 09:55] LABS: Chol/HDL Ratio 2.34 Ratio; LDL Cholesterol,Calculated 47.1 mg/dL (0.0-131.0)
--- NOTE | 2021-08-14 11:25 | P.PN ---
Subjective Patient is doing well. No chest discomfort dizziness lightheadedness Walking around the room comfortably On examination he is afebrile 97.2F pulse rate in the 50s, blood pressure 139 of 70 mmHg normal respirations Breath sounds are clear no rhonchi no crackles Normal heart sounds normal S1 normal S2 Abdomen soft nontender Extremities warm no edema Right hand circulation normal Impression Non-Q wave myocardial infarction Preserved LV systolic function and 2-D echo Status post stenting to Dr. Santoyo Radial artery access site has healed well Plan Patient may go home today and follow up in about a week's time in the office He will continue aspirin, Plavix Atorvastatin to continue Metoprolol tartrate 50 g twice daily and losartan 25 mg daily at bedtime Objective - Vital Signs Vital signs: Vital Signs Temp 97.2 F L 08/14/21 08:00 Pulse 55 L 08/14/21 08:00 Resp 16 08/14/21 08:00 BP 139/70 08/14/21 08:00 Pulse Ox 98 08/14/21 08:00 Intake & Output 08/13/21 08/14/21 08/14/21 18:59 06:59 18:59 Intake Total 1880 1760 Output Total 800 Balance 1880 960 Weight 84 kg Intake: IV 900 920 Invasive Line 1 10 Invasive Line 2 10 Sodium Chloride 0.9% 1, 150 900 000 ml @ 75 mls/hr IV . [id number] [facility] Rx#:[id number] Oral 980 840 Output: Urine 800 Other: Voiding Method Toilet Toilet # Voids 1 1 2 - Labs CBC & Chem 7: 08/14/21 08:06 08/14/21 08:06 Labs: Abnormal Lab Results - Last 24 Hours (Table) 08/13/21 08/13/21 08/13/21 Range/Units 04:29 12:22 16:54 Plt Count (150-450) k/uL Anion Gap 9.10 L (10.00-18.00) mmol/L BUN (9-20) mg/dL Est GFR (CKD-EPI)AfAm 57.4 L (60.0-200.0) Est GFR (CKD-EPI)NonAf 49.5 L (60.0-200.0) Glucose 195 H (70-110) mg/dL POC Glucose (mg/dL) 165 H 187 H (75-99) mg/dL 08/13/21 08/14/21 08/14/21 Range/Units 19:45 06:14 08:06 Plt Count (150-450) k/uL Anion Gap (10.00-18.00) mmol/L BUN 22 H (9-20) mg/dL Est GFR (CKD-EPI)AfAm (60.0-200.0) Est GFR (CKD-EPI)NonAf (60.0-200.0) Glucose 152 H (70-110) mg/dL POC Glucose (mg/dL) 177 H 131 H (75-99) mg/dL 08/14/21 Range/Units 08:06 Plt Count 126 L (150-450) k/uL Anion Gap (10.00-18.00) mmol/L BUN (9-20) mg/dL Est GFR (CKD-EPI)AfAm (60.0-200.0) Est GFR (CKD-EPI)NonAf (60.0-200.0) Glucose (70-110) mg/dL POC Glucose (mg/dL) (75-99) mg/dL
[2021-08-14 11:57] LABS: Glucose,Whole Blood 234 mg/dL (75-99)
[2021-08-14 12:34] VITALS: BP 144/84; PULSE 52; TEMP 98.6
--- NOTE | 2021-08-19 08:57 | P.DS ---
Providers Date of admission: 08/12/21 14:45 Expected date of discharge: 08/14/21 Attending physician: Meera Lopez Consults: 08/12/21 13:32 Consult Physician Routine Consulting Provider: Sam Martinez Consult Reason/Comments: UA Do you want consulting provider notified?: Yes Primary care physician: Physician Nonstaff Hospital Course: Final diagnosis Chest pain, possible unstable angina Negative positive stress test in the outpatient setting Elevated random glucose. history of coronary artery disease, stent Diabetes mellitus type 2 Hypertension History of myocardial infarction Full code Discharge disposition Patient is being discharged in a stable condition with guarded prognosis to home. Patient will follow-up with Dr. Garza at the [facility] in the outpatient setting upon discharge. Patient is to follow-up with cardiology in the outpatient setting. Patient follows at the [facility] out of [place]. Total time taken is greater than 35 minutes. Hospital course This is a 71-year-old male who was recently admitted with having a recent positive stress test out [facility] and developed increasing chest pain after going home that was pressure-like and came to the ER for further evaluation. Cardiology evaluated the patient and underwent cardiac catheterization. 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 Patient is requesting to go home. Currently no reports of chest pain, shortness of breath, or palpitations. Patient is afebrile. No reports of nausea or vomiting and patient is tolerating diet. Patient will be discharged home today. Guarded prognosis. On exam vital signs are stable. Cardio S1, S2 are muffled. Respiratory system shows diminished breath sounds at the bases with no wheezing or rhonchi noted. Abdomen is soft and nontender. Nervous system shows no focal deficits. Please refer to medication reconciliation sheet for a list of medications. Patient Condition at Discharge: Stable Plan - Discharge Summary Discharge Rx Participant: No New Discharge Prescriptions: Continue Primidone [Mysoline] 50 mg PO HS Metoprolol Tartrate [Lopressor] 50 mg PO BID Nitroglycerin Sl Tabs [Nitrostat] 0.4 mg SUBLINGUAL Q5M PRN #100 tab PRN Reason: Chest Pain Clopidogrel Bisulfate [Plavix] 75 mg PO DAILY Finasteride [Proscar] 5 mg PO DAILY metFORMIN HCL [Glucophage] 1,000 mg PO DAILY Ranolazine [Ranexa] 500 mg PO BID Aspirin 81 mg PO DAILY Losartan [Cozaar] 25 mg PO HS Atorvastatin Calcium [Lipitor] 80 mg PO HS Discharge Medication List Aspirin 81 mg PO DAILY 08/10/21 [History] Finasteride [Proscar] 5 mg PO DAILY 08/10/21 [History] Metoprolol Tartrate [Lopressor] 50 mg PO BID 08/10/21 [History] Primidone [Mysoline] 50 mg PO HS 08/10/21 [History] Ranolazine [Ranexa] 500 mg PO BID 08/10/21 [History] metFORMIN HCL [Glucophage] 1,000 mg PO DAILY 08/10/21 [History] Nitroglycerin Sl Tabs [Nitrostat] 0.4 mg SUBLINGUAL Q5M PRN #100 tab 08/11/21 [Rx] Atorvastatin Calcium [Lipitor] 80 mg PO HS 08/13/21 [History] Clopidogrel Bisulfate [Plavix] 75 mg PO DAILY 08/13/21 [History] Losartan [Cozaar] 25 mg PO HS 08/13/21 [History] Follow up Appointment(s)/Referral(s): Bud Santoyo MD [STAFF PHYSICIAN] - 1 Week (Office is closed,please call for appointment date and time) Nonstaff,Physician [Primary Care Provider] - 1-2 days Patient Instructions/Handouts: Left Heart Catheterization (DC), Heart Healthy Diet (DC), Coronary Intravascular Stent Placement (DC), After Radial Heart Catheterization (GEN), Procedural Sedation (ED) Activity/Diet/Wound Care/Special Instructions: No flexing/bending/pushing/pulling/lifting greater than 5 pounds x5 days No driving x3 days No submersion of right wrist in pools/hot tubs/bath tubs/dish water x3 days Fall risk/safety precautions Encourage fluids x2 days Follow up cardiology in one week- please call to make appointment- office is closed Medications: Hold Metformin x48 hours- resume on 08/15 New prescriptions provided- Nitrostat Sublingual, Atorvastatin, Losartan, and Plavix follow up At the [facility] in [place] on discharge continue taking medications as prescribed Discharge Disposition: HOME SELF-CARE
== END 2021-08-14 16:29 | disposition home or self-care (01) | DRG 251 ==
LOC: EC 12:42 → OBSVTOIN 14:45 → 6NMEDSUR 14:45 → 3SCARD 08-13 15:05
PROVIDERS: ADMIT Hospitalist; ATTEND Hospitalist
PROC: 02713ZZ Dilation of Coronary Artery, Two Arteries, Percutaneous Approach (ICD-10-PCS; principal; 2021-08-13 10:00)
PROC: 4A023N7 Measurement of Cardiac Sampling and Pressure, Left Heart, Percutaneous Approach (ICD-10-PCS; 2021-08-13 10:00)
PROC: B2111ZZ Fluoroscopy of Multiple Coronary Arteries using Low Osmolar Contrast (ICD-10-PCS; 2021-08-13 10:00)
DX: I21.4 Non-ST elevation (NSTEMI) myocardial infarction (principal); T82.855A Stenosis of coronary artery stent, initial encounter; I25.110 Atherosclerotic heart disease of native coronary artery with unstable angina pectoris; Z20.822 Contact with and (suspected) exposure to COVID-19; E11.9 Type 2 diabetes mellitus without complications; E78.5 Hyperlipidemia, unspecified; I10 Essential (primary) hypertension; I25.2 Old myocardial infarction; I45.10 Unspecified right bundle-branch block; Y83.1 Surgical operation with implant of artificial internal device as the cause of abnormal reaction of the patient, or of later complication, without mention of misadventure at the time of the procedure; Z79.82 Long term (current) use of aspirin; Z79.84 Long term (current) use of oral hypoglycemic drugs; Z79.899 Other long term (current) drug therapy; Z82.49 Family history of ischemic heart disease and other diseases of the circulatory system; Z87.891 Personal history of nicotine dependence
CPT/HCPCS: 36415; 71046; 80048; 80053; 80061; 81003; 83735; 84484; 85025; 85610; 85730; 87635; 93005; 93458; 99291

== ENCOUNTER → 2021-12-02 | Outpatient (CLI) | payer OTHER ==
--- NOTE | 2021-12-02 16:22 | NM ---
EXAMINATION TYPE: NM DatScan Brain SPECT DATE OF EXAM: 12/02/2021 COMPARISON: NONE HISTORY: Tremors. TECHNIQUE: 10 drops of Lugol's solution was administered 1 hour prior to injection as a thyroid bloc sharmin agent. After the administration of 4.5 mCi I-123 Ioflupane DaTscan. Images obtained [address] injection. SPECT images of the brain were acquired with axial and coronal reconstructions. FINDINGS: The DaTSCAN demonstrates normal uptake of tracer throughout the striata. Consequently there is no evidence of loss of the pre-synaptic dopaminergic terminals on this investig ation. IMPRESSION: This normal appearance is against a diagnosis of idiopathic Parkinson?s disease (PD) or a Parkinsonia n syndrome (PS) and is seen in healthy individuals and also patients with essential tremor (ET), drug induced parkinsonism, and vascular pseudo-parkinsonism.
== END | disposition home or self-care (01) ==
LOC: EDUNIT# 06-11 13:30 → RADNMMAIN 10:25
PROVIDERS: ATTEND Psychiatry & Neurology Neurology
DX: G25.0 Essential tremor (principal)
CPT/HCPCS: 78803; A9584

== ENCOUNTER 2022-12-27 20:35 | Emergency (ER) | payer OTHER ==
[2022-12-27] MEDS ORDERED: DIPH,PERTUS(ACELL)TETVAC-LF 0.5 ML VIAL IM ONE (22:08)
--- NOTE | 2022-12-27 22:14 | ED ---
General Adult HPI - General Chief complaint: Fall Stated complaint: fall Time Seen by Provider: 12/27/22 21:39 Source: patient, RN notes reviewed, old records reviewed Mode of arrival: wheelchair Limitations: no limitations - History of Present Illness Initial comments: 72 yo male presents for evaluation of fall. Patient fell onto a resin bear. He tripped while in the bathroom and fell directly onto this on his sacral region. He had bleeding noted. He was ambulatory and came through walk in triage. No head or neck trauma. No pain complaints. Uncertain when last tetanus was. - Related Data Home Medications Medication Instructions Recorded Confirmed Aspirin 81 mg PO DAILY 08/10/21 08/12/21 Finasteride [Proscar] 5 mg PO DAILY 08/10/21 08/12/21 Metoprolol Tartrate [Lopressor] 50 mg PO BID 08/10/21 08/12/21 Primidone [Mysoline] 50 mg PO HS 08/10/21 08/12/21 Ranolazine [Ranexa] 500 mg PO BID 08/10/21 08/12/21 metFORMIN HCL [Glucophage] 1,000 mg PO DAILY 08/10/21 08/12/21 Atorvastatin Calcium [Lipitor] 80 mg PO HS 08/13/21 08/13/21 Clopidogrel Bisulfate [Plavix] 75 mg PO DAILY 08/13/21 08/13/21 Losartan [Cozaar] 25 mg PO HS 08/13/21 08/13/21 Previous Rx's Medication Instructions Recorded Nitroglycerin Sl Tabs [Nitrostat] 0.4 mg SUBLINGUAL Q5M PRN #100 tab 08/11/21 Allergies Allergy/AdvReac Type Severity Reaction Status Date / Time No Known Allergies Allergy Verified 12/27/22 21:17 Review of Systems ROS Statement: Those systems with pertinent positive or pertinent negative responses have been documented in the HPI. ROS Other: All systems not noted in ROS Statement are negative. Past Medical History Past Medical History: Chest Pain / Angina, Diabetes Mellitus, Hypertension, Myocardial Infarction (SD) Last Myocardial Infarction Date:: 2014 History of Any Multi-Drug Resistant Organisms: None Reported Past Surgical History: Heart Catheterization, Heart Catheterization With Stent Past Anesthesia/Blood Transfusion Reactions: No Reported Reaction Date of Last Stent Placement:: 2014 Past Psychological History: No Psychological Hx Reported Smoking Status: Former smoker Past Alcohol Use History: Occasional Past Drug Use History: None Reported - Past Family History Father Family Medical History: Cancer Mother Family Medical History: Myocardial Infarction (SD) General Exam Limitations: no limitations General appearance: alert, in no apparent distress Head exam: Present: atraumatic, normocephalic Eye exam: Present: normal appearance, PERRL ENT exam: Present: normal exam Neck exam: Present: normal inspection. Absent: tenderness Respiratory exam: Present: normal lung sounds bilaterally. Absent: respiratory distress Cardiovascular Exam: Present: regular rate, normal rhythm GI/Abdominal exam: Present: soft. Absent: distended, tenderness Rectal exam: Present: other (Sacral ecchymosis, no bony tenderness. Superficial abrasion and laceration. No repairable deep laceration. No hemorrhage.) Extremities exam: Present: normal inspection, full ROM, normal capillary refill. Absent: pedal edema, joint swelling, calf tenderness Neurological exam: Present: alert, oriented X3, CN II-XII intact. Absent: motor sensory deficit Psychiatric exam: Present: normal affect, normal mood Skin exam: Present: warm, dry Course Vital Signs 12/27/22 21:10 Temperature 97.5 F L Pulse Rate 62 Respiratory 20 Rate Blood Pressure 172/82 O2 Sat by Pulse 99 Oximetry Medical Decision Making - Medical Decision Making Was pt. sent in by a medical professional or institution (, PA, MISSIONARY COORDINATOR, urgent care, hospital, or usp...) When possible be specific @ -No Did you speak to anyone other than the patient for history (EMS, parent, family, police, friend...)? What history was obtained from this source @ -No Did you review nursing and triage notes (agree or disagree)? Why? @ -I reviewed and agree with nursing and triage notes Were old charts reviewed (outside hosp., previous admission, EMS record, old EKG, old radiological studies, urgent care reports/EKG's, usp records)? Report findings @ -No old charts were reviewed Differential Diagnosis (chest pain, altered mental status, abdominal pain women, abdominal pain men, vaginal bleeding, weakness, fever, dyspnea, syncope, headache, dizziness, GI bleed, back pain, seizure, CVA, palpatations, mental health, musculoskeletal)? @ -Fall with sacral ecchymosis and laceration. EKG interpreted by me (3pts min.). @ -As above X-rays interpreted by me (1pt min.). @ -None done CT interpreted by me (1pt min.). @ -None done U/S interpreted by me (1pt. min.). @ -None done What testing was considered but not performed or refused? (CT, X-rays, U/S, labs)? Why? @ -None What meds were considered but not given or refused? Why? @ -None Did you discuss the management of the patient with other professionals (professionals i.e. , PA, MISSIONARY COORDINATOR, lab, RT, psych nurse, 7th grade social studies teacher, crusher operator, teacher, program officer, rn case management)? Give summary @ -No Was smoking cessation discussed for >3mins.? @ -No Was critical care preformed (if so, how long)? @ -No Were there social determinants of health that impacted care today? How? (Homelessness, low income, unemployed, alcoholism, drug addiction, transportation, low edu. Level, literacy, decrease access to med. care, residential, rehab)? @ -No Was there de-escalation of care discussed even if they declined (Discuss DNR or withdrawal of care, Hospice)? DNR status @ -No What co-morbidities impacted this encounter? (DM, HTN, Smoking, COPD, CAD, Cancer, CVA, ARF, Chemo, Hep., AIDS, mental health diagnosis, sleep apnea, morbid obesity)? @ -None Was patient admitted / discharged? Hospital course, mention meds given and route, prescriptions, significant lab abnormalities, going to OR and other pertinent info. @ -Tetanus is updated, the superficial skin tear laceration is washed in the emergency department and dressing applied. There is no repairable laceration. No active bleeding.] Undiagnosed new problem with uncertain prognosis? @ -No Drug Therapy requiring intensive monitoring for toxicity (Heparin, Nitro, Insulin, Cardizem)? @ -No Were any procedures done? @ -No Diagnosis/symptom? @ -Skin tear and superficial laceration Acute, or Chronic, or Acute on Chronic? @ -Acute Uncomplicated (without systemic symptoms) or Complicated (systemic symptoms)? @ -Uncomplicated Side effects of treatment? @ -No Exacerbation, Progression, or Severe Exacerbation? @ -No Poses a threat to life or bodily function? How? (Chest pain, USA, SD, pneumonia, PE, COPD, DKA, ARF, appy, cholecystitis, CVA, Diverticulitis, Homicidal, Suicidal, threat to staff... and all critical care pts) @ -No Disposition Clinical Impression: Fall, Skin tear, Superficial laceration Disposition: HOME SELF-CARE Condition: Good Instructions (If sedation given, give patient instructions): Abrasion (ED), Skin Tear (ED) Additional Instructions: Please follow up with her primary care Is patient prescribed a controlled substance at d/c from ED?: No Referrals: Nonstaff,Physician [Primary Care Provider] - 1-2 days Time of Disposition: 22:14
[2022-12-27 22:33] VITALS: BP 188/88; PULSE 61; RESP 17; TEMP 97.8
== END 2022-12-27 22:33 | disposition home or self-care (01) ==
LOC: EC 20:35
DX: S61.419A Laceration without foreign body of unspecified hand, initial encounter (principal); I10 Essential (primary) hypertension; E11.9 Type 2 diabetes mellitus without complications; I25.2 Old myocardial infarction; Z79.82 Long term (current) use of aspirin; Z79.84 Long term (current) use of oral hypoglycemic drugs; Z79.899 Other long term (current) drug therapy; Z87.891 Personal history of nicotine dependence; Z23 Encounter for immunization; W01.0XXA Fall on same level from slipping, tripping and stumbling without subsequent striking against object, initial encounter
CPT/HCPCS: 90471; 90715; 99283

== ENCOUNTER 2023-06-20 06:59 | Day surgery (SDC) | payer OTHER ==
[2023-06-14 13:13] VITALS: BMI 32.5
[~2023-06-20 06:59] MED LIST: LACTATED RINGERS 1,000 ML IV SCH
[2023-06-20 07:34] VITALS: RESP 20; TEMP 97
[2023-06-20 07:51] LABS: Glucose,Whole Blood 77 mg/dL (70-110)
[2023-06-20] MEDS ORDERED: PROPOFOL 10 MG/ML 20 ML VIAL IV ONE (08:05)
[2023-06-20] MEDS ORDERED: LIDOCAINE 2% INJ 20 MG/ML (2 ML VIAL) ONE (08:05)
--- NOTE | 2023-06-20 08:09 | P.GSHP ---
History of Present Illness H&P Date: 06/20/23 Chief Complaint: screening, history of polyps 72-year-old male here for colonoscopy. Last colonoscopy 4-5 years ago at the [facility]. Patient states he has a history of polyps. No family history of colon cancer. Past Medical History Past Medical History: Coronary Artery Disease (CAD), Chest Pain / Angina, Diabetes Mellitus, Hyperlipidemia, Hypertension, Myocardial Infarction (PR), Prostate Disorder Additional Past Medical History / Comment(s): TREMORS Last Myocardial Infarction Date:: 07/2021 History of Any Multi-Drug Resistant Organisms: None Reported Past Surgical History: Heart Catheterization With Stent Past Anesthesia/Blood Transfusion Reactions: No Reported Reaction Date of Last Stent Placement:: 07/2021 Past Psychological History: No Psychological Hx Reported Smoking Status: Former smoker Past Alcohol Use History: Occasional Past Drug Use History: None Reported - Past Family History Father Family Medical History: Cancer Mother Family Medical History: Myocardial Infarction (PR) Medications and Allergies Home Medications Medication Instructions Recorded Confirmed Type Aspirin 81 mg PO DAILY 08/10/21 06/14/23 History Finasteride [Proscar] 5 mg PO DAILY 08/10/21 06/14/23 History Metoprolol Tartrate [Lopressor] 0.5 tab PO BID 08/10/21 06/14/23 History Primidone [Mysoline] 5 tab PO HS 08/10/21 06/14/23 History Ranolazine [Ranexa] 500 mg PO BID 08/10/21 06/14/23 History Atorvastatin Calcium [Lipitor] 80 mg PO HS 08/13/21 06/14/23 History Clopidogrel Bisulfate [Plavix] 75 mg PO DAILY 08/13/21 06/14/23 History Losartan [Cozaar] 25 mg PO DAILY 08/13/21 06/14/23 History Empagliflozin [Jardiance] 0.5 tab PO DAILY 06/14/23 06/14/23 History Tamsulosin [Flomax] 2 cap PO DAILY 06/14/23 06/14/23 History lamoTRIgine [LaMICtal] 2 tab PO DAILY 06/14/23 06/14/23 History Allergies Allergy/AdvReac Type Severity Reaction Status Date / Time simvastatin AdvReac MUSCLE PAIN Verified 06/14/23 12:59 Surgical - Exam Vital Signs Temp Pulse Resp BP Pulse Ox 97 F L 63 20 159/77 97 10/03/23 07:26 06/20/23 07:26 06/20/23 07:26 06/20/23 07:26 06/20/23 07:26 Physical exam: General: Well-developed, well-nourished HEENT: Normocephalic, sclerae nonicteric Abdomen: Nontender, nondistended Extremities: No edema Neuro: Alert and oriented Assessment and Plan (1) Colon cancer screening Narrative/Plan: Will proceed with colonoscopy at this time. Current Visit: Yes Status: Acute Code(s): Z12.11 - ENCOUNTER FOR SCREENING FOR MALIGNANT NEOPLASM OF COLON SNOMED Code(s): 861925562
--- NOTE | 2023-06-20 08:15 | P.PCN ---
Date of Procedure: 06/20/23 Procedure(s) Performed: PREOPERATIVE DIAGNOSIS: Screening with history of polyps POSTOPERATIVE DIAGNOSIS: Poor colonic prep PROCEDURE: Attempted colonoscopy ANESTHESIA: MAC SURGEON: Ruy Paniagua M.D. SPECIMENS: None ENDOSCOPIC PROCEDURE: The patient was placed on the endoscopy table in the left decubitus position. The Olympus colonoscope was inserted into the anus and passed under direct visualization to the sigmoid colon. The patient had retained solid and liquid stool throughout. We could not visualize the mucosal well at all. The scope was withdrawn. RECOMMENDATIONS: Will require reprep/reattempt.
[2023-06-20 08:52] VITALS: BP 146/74; PULSE 75
== END 2023-06-20 09:03 | disposition home or self-care (01) ==
LOC: ORWHC2ENDO 06:59
PROVIDERS: ATTEND Surgery
DX: Z12.11 Encounter for screening for malignant neoplasm of colon (principal); I25.10 Atherosclerotic heart disease of native coronary artery without angina pectoris; E11.9 Type 2 diabetes mellitus without complications; E78.5 Hyperlipidemia, unspecified; I10 Essential (primary) hypertension; I25.2 Old myocardial infarction; F10.90 Alcohol use, unspecified, uncomplicated; Z80.0 Family history of malignant neoplasm of digestive organs; Z95.5 Presence of coronary angioplasty implant and graft; Z87.891 Personal history of nicotine dependence; Z79.82 Long term (current) use of aspirin; Z79.02 Long term (current) use of antithrombotics/antiplatelets; Z79.899 Other long term (current) drug therapy; Z79.84 Long term (current) use of oral hypoglycemic drugs; Z88.8 Allergy status to other drugs, medicaments and biological substances
CPT/HCPCS: 45330; J2704; J2001

== ENCOUNTER 2023-11-07 14:43 | Observation (INO) | payer OTHER, MEDICARE ==
--- NOTE | 2023-11-07 15:36 | ED ---
General Adult HPI - General Chief complaint: Neuro Symptoms/Deficit Stated complaint: Altered Time Seen by Provider: 11/07/23 15:16 Source: patient, family, RN notes reviewed Mode of arrival: ambulatory Limitations: no limitations - History of Present Illness Initial comments: Patient is a pleasant 73-year-old male presenting to the emergency department for change in mental status. Patient has had some mild change in mental status in the past. Patient did have episode Monday where he urinated on himself and had difficulty dressing himself and was somewhat confused. Patient did fine yesterday. Today patient had an episode where he suddenly fell. No injury. Patient denies any syncope or loss of consciousness. Patient states that this time he feels fine has no complaints. Patient and family unclear if patient normally is oriented to year. - Related Data Home Medications Medication Instructions Recorded Confirmed Aspirin 81 mg PO DAILY 08/10/21 11/07/23 Finasteride [Proscar] 5 mg PO DAILY 08/10/21 11/07/23 Metoprolol Tartrate [Lopressor] 25 mg PO BID 08/10/21 11/07/23 Primidone [Mysoline] 250 mg PO HS 08/10/21 11/07/23 Ranolazine [Ranexa] 500 mg PO BID 08/10/21 11/07/23 Atorvastatin Calcium [Lipitor] 80 mg PO HS 08/13/21 11/07/23 Clopidogrel Bisulfate [Plavix] 75 mg PO DAILY 08/13/21 11/07/23 Losartan [Cozaar] 25 mg PO DAILY 08/13/21 11/07/23 Empagliflozin [Jardiance] 12.5 mg PO DAILY 06/14/23 11/07/23 lamoTRIgine [LaMICtal] 200 mg PO DAILY 06/14/23 11/07/23 Carboxymethylcellulose Sodium 1 drop BOTH EYES QID 11/07/23 11/07/23 [Thera Tears] lamoTRIgine [LaMICtal] 100 mg PO HS 11/07/23 11/07/23 Allergies Allergy/AdvReac Type Severity Reaction Status Date / Time simvastatin AdvReac MUSCLE PAIN Verified 11/07/23 17:09 Review of Systems ROS Statement: Those systems with pertinent positive or pertinent negative responses have been documented in the HPI. ROS Other: All systems not noted in ROS Statement are negative. Constitutional: Denies: fever Eyes: Denies: eye pain ENT: Denies: ear pain Respiratory: Denies: cough Cardiovascular: Denies: chest pain Endocrine: Denies: fatigue Gastrointestinal: Denies: abdominal pain Neurological: Reports: as per HPI. Denies: headache, weakness Past Medical History Past Medical History: Coronary Artery Disease (CAD), Chest Pain / Angina, CVA/TIA, Diabetes Mellitus, Hyperlipidemia, Hypertension, Myocardial Infarction (MD), Prostate Disorder Additional Past Medical History / Comment(s): TREMORS Last Myocardial Infarction Date:: 07/2021 History of Any Multi-Drug Resistant Organisms: None Reported Past Surgical History: Heart Catheterization With Stent Past Anesthesia/Blood Transfusion Reactions: No Reported Reaction Date of Last Stent Placement:: 07/2021 Past Psychological History: No Psychological Hx Reported Smoking Status: Former smoker Past Alcohol Use History: Occasional Past Drug Use History: None Reported - Past Family History Father Family Medical History: Cancer Mother Family Medical History: Myocardial Infarction (MD) General Exam Limitations: no limitations General appearance: alert, in no apparent distress Head exam: Present: atraumatic, normocephalic Eye exam: Present: normal appearance, PERRL, EOMI ENT exam: Present: normal oropharynx Neck exam: Present: normal inspection. Absent: tenderness, meningismus Respiratory exam: Present: normal lung sounds bilaterally Cardiovascular Exam: Present: regular rate, normal rhythm GI/Abdominal exam: Present: soft. Absent: distended, tenderness Extremities exam: Present: normal inspection Neurological exam: Present: alert, CN II-XII intact. Absent: motor sensory deficit Expanded Neurological exam: Present: protecting the airway Patient oriented to: Present: person, place. Absent: time (Not oriented to year. Family questions whether or not this is normal) Cranial nerves: EOM's Intact: Normal, Facial Sensation: Normal Motor strength exam: RUE: 5, LUE: 5, RLE: 5, LLE: 5 Eye Response: (4) open spontaneously Motor Response: (6) obeys commands Verbal Response: (4) confused conversation Psychiatric exam: Present: normal affect, normal mood Skin exam: Present: normal color Course Vital Signs 11/07/23 11/07/23 14:55 18:22 Temperature 98.1 F Pulse Rate 58 L 53 L Respiratory 16 18 Rate Blood Pressure 154/75 128/67 O2 Sat by Pulse 98 99 Oximetry EKG Findings - EKG Results: EKG: interpreted by ERMD (Left axis. Right bundle branch block), sinus rhythm EKG shows: bradycardia Medical Decision Making - Medical Decision Making Was pt. sent in by a medical professional or institution (HANK Lopez, HERB DIGGER, urgent care, hospital, or half-way...) When possible be specific @ -No Did you speak to anyone other than the patient for history (EMS, parent, family, police, friend...)? What history was obtained from this source @ -Son is present and helps provide history including what he witnessed Did you review nursing and triage notes (agree or disagree)? Why? @ -I reviewed and agree with nursing and triage notes Were old charts reviewed (outside hosp., previous admission, EMS record, old EKG, old radiological studies, urgent care reports/EKG's, half-way records)? Report findings @ -Previous chest x-ray reviewed Differential Diagnosis (chest pain, altered mental status, abdominal pain women, abdominal pain men, vaginal bleeding, weakness, fever, dyspnea, syncope, headache, dizziness, GI bleed, back pain, seizure, CVA, palpatations, mental health, musculoskeletal)? @ -Differential Altered Mental Status: Hypoglycemia, DKA, hypercapnia, ETOH, overdose, CO poisoning, trauma, myxedema coma, HTN encephalopathy, infection, encephalitis, psychosis, intercranial hemorrhage, hepatic encephalopathy, meningitis, CVA, this is not meant to be an all-inclusive list EKG interpreted by me (3pts min.). @ -As above X-rays interpreted by me (1pt min.). @ -Chest x-ray shows no acute process. CT interpreted by me (1pt min.). @ -CT scan of the brain shows hydrocephalus U/S interpreted by me (1pt. min.). @ -None done What testing was considered but not performed or refused? (CT, X-rays, U/S, labs)? Why? @ -None What meds were considered but not given or refused? Why? @ -None Did you discuss the management of the patient with other professionals (professionals i.e. HANK Lopez, HERB DIGGER, lab, RT, psych nurse, high school social science teacher, instrument mechanics supervisor, teacher, operations officer afloat, heel caser)? Give summary @ -Case was discussed with Dr. Bro, who will admit covering hospital call. Was smoking cessation discussed for >3mins.? @ -No Was critical care preformed (if so, how long)? @ -No Were there social determinants of health that impacted care today? How? (Homelessness, low income, unemployed, alcoholism, drug addiction, transpor tation, low edu. Level, literacy, decrease access to med. care, [facility], rehab)? @ -No Was there de-escalation of care discussed even if they declined (Discuss DNR or withdrawal of care, Hospice)? DNR status @ -No What co-morbidities impacted this encounter? (DM, HTN, Smoking, COPD, CAD, Cancer, CVA, ARF, Chemo, Hep., AIDS, mental health diagnosis, sleep apnea, morbid obesity)? @ -None Was patient admitted / discharged? Hospital course, mention meds given and route, prescriptions, significant lab abnormalities, going to OR and other pertinent info. @ -Patient reevaluated and resting comfortably in bed. Patient and family updated on results and plan. Patient will be admitted with neurology consult. Admission orders written. Undiagnosed new problem with uncertain prognosis? @ -No Drug Therapy requiring intensive monitoring for toxicity (Heparin, Nitro, Insulin, Cardizem)? @ -No Were any procedures done? @ -No Diagnosis/symptom? @ -Altered mental status Acute, or Chronic, or Acute on Chronic? @ -Acute Uncomplicated (without systemic symptoms) or Complicated (systemic symptoms)? @ -Default Side effects of treatment? @ -No Exacerbation, Progression, or Severe Exacerbation? @ -No Poses a threat to life or bodily function? How? (Chest pain, USA, MD, pneumonia, PE, COPD, DKA, ARF, appy, cholecystitis, CVA, Diverticulitis, Homicidal, Suicidal, threat to staff... and all critical care pts) @ -No - Lab Data Result diagrams: 11/07/23 15:49 11/07/23 15:49 Lab Results 11/07/23 11/07/23 11/07/23 Range/Units 15:49 15:49 15:49 WBC 5.2 (3.8-10.6) k/uL RBC 4.58 (4.30-5.90) m/uL Hgb 13.9 (13.0-17.5) gm/dL Hct 41.8 (39.0-53.0) % MCV 91.4 (80.0-100.0) fL MCH 30.4 (25.0-35.0) pg MCHC 33.2 (31.0-37.0) g/dL RDW 13.4 (11.5-15.5) % Plt Count 148 L (150-450) k/uL MPV 8.4 Neutrophils % 65 % Lymphocytes % 17 % Monocytes % 9 % Eosinophils % 5 % Basophils % 1 % Neutrophils # 3.4 (1.3-7.7) k/uL Lymphocytes # 0.9 L (1.0-4.8) k/uL Monocytes # 0.5 (0-1.0) k/uL Eosinophils # 0.2 (0-0.7) k/uL Basophils # 0.0 (0-0.2) k/uL PT 10.9 (10.0-12.5) sec INR 1.0 (<1.2) APTT 24.7 (22.0-30.0) sec Sodium (137-145) mmol/L Potassium (3.5-5.1) mmol/L Chloride (98-107) mmol/L Carbon Dioxide (22-30) mmol/L Anion Gap mmol/L BUN (9-20) mg/dL Creatinine (0.66-1.25) mg/dL Est GFR (CKD-EPI)AfAm (>60 ml/min/1.73 sqM) Est GFR (CKD-EPI)NonAf (>60 ml/min/1.73 sqM) Glucose (74-99) mg/dL Calcium (8.4-10.2) mg/dL Total Bilirubin (0.2-1.3) mg/dL AST (17-59) U/L ALT (4-49) U/L Alkaline Phosphatase (38-126) U/L Troponin I (0.000-0.034) ng/mL Total Protein (6.3-8.2) g/dL Albumin (3.5-5.0) g/dL Urine Color Colorless Urine Appearance Clear (Clear) Urine pH 5.0 (5.0-8.0) Ur Specific [place] 1.018 (1.001-1.035) Urine Protein Negative (Negative) Urine Glucose (UA) 4+ H (Negative) Urine Ketones Negative (Negative) Urine Blood Negative (Negative) Urine Nitrite Negative (Negative) Urine Bilirubin Negative (Negative) Urine Urobilinogen <2.0 (<2.0) mg/dL Ur Leukocyte Esterase Negative (Negative) Serum Alcohol mg/dL 11/07/23 11/07/23 Range/Units 15:49 15:49 WBC (3.8-10.6) k/uL RBC (4.30-5.90) m/uL Hgb (13.0-17.5) gm/dL Hct (39.0-53.0) % MCV (80.0-100.0) fL MCH (25.0-35.0) pg MCHC (31.0-37.0) g/dL RDW (11.5-15.5) % Plt Count (150-450) k/uL MPV Neutrophils % % Lymphocytes % % Monocytes % % Eosinophils % % Basophils % % Neutrophils # (1.3-7.7) k/uL Lymphocytes # (1.0-4.8) k/uL Monocytes # (0-1.0) k/uL Eosinophils # (0-0.7) k/uL Basophils # (0-0.2) k/uL PT (10.0-12.5) sec INR (<1.2) APTT (22.0-30.0) sec Sodium 137 (137-145) mmol/L Potassium 4.4 (3.5-5.1) mmol/L Chloride 106 (98-107) mmol/L Carbon Dioxide 24 (22-30) mmol/L Anion Gap 7 mmol/L BUN 29 H (9-20) mg/dL Creatinine 1.21 (0.66-1.25) mg/dL Est GFR (CKD-EPI)AfAm 68 (>60 ml/min/1.73 sqM) Est GFR (CKD-EPI)NonAf 58 (>60 ml/min/1.73 sqM) Glucose 182 H (74-99) mg/dL Calcium 9.2 (8.4-10.2) mg/dL Total Bilirubin 0.4 (0.2-1.3) mg/dL AST 26 (17-59) U/L ALT 20 (4-49) U/L Alkaline Phosphatase 127 H (38-126) U/L Troponin I <0.012 (0.000-0.034) ng/mL Total Protein 5.9 L (6.3-8.2) g/dL Albumin 3.6 (3.5-5.0) g/dL Urine Color Urine Appearance (Clear) Urine pH (5.0-8.0) Ur Specific [place] (1.001-1.035) Urine Protein (Negative) Urine Glucose (UA) (Negative) Urine Ketones (Negative) Urine Blood (Negative) Urine Nitrite (Negative) Urine Bilirubin (Negative) Urine Urobilinogen (<2.0) mg/dL Ur Leukocyte Esterase (Negative) Serum Alcohol <10 mg/dL Disposition Clinical Impression: Altered mental state Disposition: ADMITTED IP TO THIS HOSP Condition: Stable Is patient prescribed a controlled substance at d/c from ED?: No Referrals: Nonstaff,Physician [Primary Care Provider] - 1-2 days Time of Disposition: 19:17
[2023-11-07 16:06] LABS: Basophils % (A) 1 %; Eosinophils # (A) 0.2 k/uL (0-0.7); Eosinophils % (A) 5 %; HCT 41.8 % (39.0-53.0); HGB 13.9 gm/dL (13.0-17.5); Lymphocytes # (A) 0.9 k/uL (1.0-4.8); Lymphocytes % (A) 17 %; MCH 30.4 pg (25.0-35.0); MCHC 33.2 g/dL (31.0-37.0); MCV 91.4 fL (80.0-100.0); Mean Platelet Volume 8.4; Monocytes # (A) 0.5 k/uL (0-1.0); Monocytes % (A) 9 %; Neutrophils # (A) 3.4 k/uL (1.3-7.7); Neutrophils % (A) 65 %; Platelet Count 148 k/uL (150-450); RBC 4.58 m/uL (4.30-5.90); RDW 13.4 % (11.5-15.5); WBC 5.2 k/uL (3.8-10.6)
[2023-11-07 16:13] LABS: ALT 20 U/L (4-49); AST 26 U/L (17-59); African American GFR (CKD) 68 (>60 ml/min/1.73 sqM); Albumin 3.6 g/dL (3.5-5.0); Alcohol <10 mg/dL; Alkaline Phosphatase 127 U/L (38-126); Anion Gap 7 mmol/L; Blood Urea Nitrogen 29 mg/dL (9-20); Calcium 9.2 mg/dL (8.4-10.2); Carbon Dioxide 24 mmol/L (22-30); Chloride 106 mmol/L (98-107); Glucose 182 mg/dL (74-99); Non-African American GFR(CKD) 58 (>60 ml/min/1.73 sqM); Potassium 4.4 mmol/L (3.5-5.1); Sodium 137 mmol/L (137-145); Total Bilirubin 0.4 mg/dL (0.2-1.3); Total Protein 5.9 g/dL (6.3-8.2)
[2023-11-07 16:18] LABS: Partial Thromboplastin Time 24.7 sec (22.0-30.0); Prothrombin Time 10.9 sec (10.0-12.5)
--- NOTE | 2023-11-07 16:57 | CT ---
EXAMINATION TYPE: CT brain wo con DATE OF EXAM: 11/07/2023 COMPARISON: None HISTORY: 73-year-old male confusion, AMS TECHNIQUE: Examination was done in axial plane without intravenous contrast. Coronal and sagittal r econstructions performed. CT DLP: 1168.4 mGycm Automated exposure control for dose reduction was used. FINDINGS: There is no evidence of acute intracranial hemorrhage, acute ischemic changes, mass, mass-effect, or extra-axial fluid collection. There is no effacement of cerebral sulci or basal subarachnoid cister ns. There is moderate hydrocephalus, Dixon's ratio calculated at 0.40. There is no midline shift. Gra y-white matter distinction is preserved. Moderate patchy periventricular white matter hypodensity. Atherosclerotic calcifications in the carot id siphons. Rightward nasal septal deviation. Scattered mild mucosal thickening ethmoid air cells and maxillary s inuses. Mastoid air cells well pneumatized. Orbits and globes are intact. IMPRESSION: 1. Moderate hydrocephalus with Dixon's ratio calculated at 0.40. Correlate to exclude a component of N PH. 2. Moderate patchy burden of chronic small vessel ischemic disease. 3. Otherwise, no acute intracranial abnormality seen.
--- NOTE | 2023-11-07 17:09 | XR ---
EXAMINATION TYPE: XR chest 2V DATE OF EXAM: 11/07/2023 4:18 PM CLINICAL INDICATION:Male, 73 years old with history of altered mental status; [facility] COMPARISON: 08/12/2021 TECHNIQUE: XR chest 2V. Frontal and lateral views of the chest.. FINDINGS: Lines/Tubes/Devices: EKG leads overlie the chest. No indwelling lines are seen. Heart/mediastinum: Heart size upper normal. Likely coronary stent on the left. Mediastinum appears n ormal. Pulmonary vascularity: Not increased, Lungs/Pleura: There is no evidence of pleural effusion, focal consolidation, or pneumothorax. Small stable appearing radiodense nodule in the left mid to lower lung zone, likely calcified granuloma. Musculoskeletal: No acute osseous abnormality demonstrated in the limits of the exam. Degenerative c hanges of the shoulders and spine. Large ian in the proximal right humerus. Other findings: None. IMPRESSION: No acute cardiopulmonary abnormality.
[2023-11-07 18:36] LABS: Appearance,Urine Clear (Clear); Bilirubin,Urine Negative (Negative); Blood,Urine Negative (Negative); Color,Urine Colorless; Glucose,Urine (UA) 4+ (Negative); Ketones,Urine Negative (Negative); Leukocyte Esterase,Urine Negative (Negative); Nitrite,Urine Negative (Negative); Protein,Urine Negative (Negative); Specific Gravity,Urine 1.018 (1.001-1.035); Urobilinogen,Urine <2.0 mg/dL (<2.0)
[2023-11-07] MEDS ORDERED: NALOXONE 0.4 MG/ML 1 ML VIAL IV PRN (19:17)
[2023-11-07] MEDS ORDERED: ACETAMINOPHEN TAB 325 MG TAB PO PRN (19:17)
--- NOTE | 2023-11-08 06:21 | P.HPIM ---
History of Present Illness H&P Date: 11/07/23 Chief Complaint: Altered mental status 73-year-old male with coronary artery disease, diabetes mellitus Patient came into the hospital for evaluation of altered mental status Patient reports that 2 to 3 days ago he was having some unusual behavior where he is insisting all night to go see his at the detention. Despite his daughter trying to convince him that slight and he should not go. He recalls the exact events and the conversations he had with his daughter realizing that it did not make sense at that time but he could not resist the urge of keep trying at that time. Then over the weekend looks like he had an another episode where he was confused again, with urinary incontinence and inability to dress himself. Then Monday he had an episode where he fell without loss of consciousness for which his family brought him to the hospital for evaluation At this time he feels back to his baseline he denies any headache changes in his vision or hearing denies any new focal neurodeficits denies any chest pain trouble breathing fevers chills coughing denies any nausea vomiting changes in bowel or urinary habits Patient denies any illicit drugs heavy alcohol or smoking review of systems Pertinent positives as noted in HPI. All other systems were reviewed and are negative on exam Constitutional: No acute distress, conversant, pleasant Eyes: Anicteric sclerae, moist conjunctiva, Pupils equal round reactive to light ENMT: NC/AT Oropharynx clear, no erythema, or exudates Neck: Supple, no masses, or JVD No carotid bruits No thyromegaly Lungs: Clear to auscultation Clear to percussion Normal respiratory effort, no accessory muscle use Cardiovascular: Heart regular in rate and rhythm, No murmurs, gallops, or rubs No peripheral edema Abdominal: Soft Nontender, no guarding, rebound or rigidity Abdomen moving with respiration Normoactive bowel sounds No hepatomegaly, No splenomegaly Extremities: No digital cyanosis No clubbing Pedal pulses intact and symmetrical Radial pulses intact and symmetrical No calf tenderness Psychiatric: Alert and oriented to person, place and time Appropriate affect fair judgement Neuro Muscles Strength 5/5 in all 4 extremities Sensation to light touch grossly present throughout Cranial nerves II-XII grossly intact Past Medical History Past Medical History: Coronary Artery Disease (CAD), Chest Pain / Angina, CVA/TIA, Diabetes Mellitus, Hyperlipidemia, Hypertension, Myocardial Infarction ([place]), Prostate Disorder Additional Past Medical History / Comment(s): TREMORS Last Myocardial Infarction Date:: 07/2021 History of Any Multi-Drug Resistant Organisms: None Reported Past Surgical History: Heart Catheterization With Stent Past Anesthesia/Blood Transfusion Reactions: No Reported Reaction Date of Last Stent Placement:: 07/2021 Past Psychological History: No Psychological Hx Reported Smoking Status: Former smoker Past Alcohol Use History: Occasional Past Drug Use History: None Reported - Past Family History Father Family Medical History: Cancer Mother Family Medical History: Myocardial Infarction ([place]) Medications and Allergies Home Medications Medication Instructions Recorded Confirmed Type Aspirin 81 mg PO DAILY 08/10/21 11/07/23 History Finasteride [Proscar] 5 mg PO DAILY 08/10/21 11/07/23 History Metoprolol Tartrate [Lopressor] 25 mg PO BID 08/10/21 11/07/23 History Primidone [Mysoline] 250 mg PO HS 08/10/21 11/07/23 History Ranolazine [Ranexa] 500 mg PO BID 08/10/21 11/07/23 History Atorvastatin Calcium [Lipitor] 80 mg PO HS 08/13/21 11/07/23 History Clopidogrel Bisulfate [Plavix] 75 mg PO DAILY 08/13/21 11/07/23 History Losartan [Cozaar] 25 mg PO DAILY 08/13/21 11/07/23 History Empagliflozin [Jardiance] 12.5 mg PO DAILY 06/14/23 11/07/23 History lamoTRIgine [LaMICtal] 200 mg PO DAILY 06/14/23 11/07/23 History Carboxymethylcellulose Sodium 1 drop BOTH EYES QID 11/07/23 11/07/23 History [Thera Tears] lamoTRIgine [LaMICtal] 100 mg PO HS 11/07/23 11/07/23 History Allergies Allergy/AdvReac Type Severity Reaction Status Date / Time simvastatin AdvReac MUSCLE PAIN Verified 11/07/23 17:09 Physical Exam Vitals: Vital Signs Temp Pulse Pulse Resp BP BP Pulse Ox 11/08/23 02:00 98.5 F 62 16 132/66 97 11/07/23 23:16 98.1 F 59 L 16 122/64 98 11/07/23 22:00 61 18 126/72 98 11/07/23 20:00 65 18 133/63 97 11/07/23 18:22 53 L 18 128/67 99 11/07/23 14:55 98.1 F 58 L 16 154/75 98 Intake and Output 11/07/23 11/07/23 11/08/23 14:59 22:59 06:59 Output Total 500 1100 Balance -500 -1100 Output: Urine 500 1100 Uretheral (Hanks) 500 Other: Voiding Method Indwelling Catheter Weight 83.915 kg 83.915 kg Results CBC & Chem 7: 11/07/23 15:49 11/07/23 15:49 Labs: Abnormal Lab Results - Last 24 Hours (Table) 11/07/23 11/07/23 11/07/23 Range/Units 15:49 15:49 15:49 Plt Count 148 L (150-450) k/uL Lymphocytes # 0.9 L (1.0-4.8) k/uL BUN 29 H (9-20) mg/dL Glucose 182 H (74-99) mg/dL Alkaline Phosphatase 127 H (38-126) U/L Total Protein 5.9 L (6.3-8.2) g/dL Urine Glucose (UA) 4+ H (Negative) Assessment and Plan Assessment: 73-year-old male with diabetes mellitus, coronary artery disease coming in for evaluation of altered mental status and abnormal behavior discussed case with ED doctor and accepted the admission for waxing and waning episodes of confusion with unusual behavior with anticipated length of stay less than 2 midnights Transient encephalopathy waxing and waning unknown underlying cause CT of the brain suggested possible moderate hydrocephalus with possible component of NPH, chronic small vessel ischemic disease otherwise no acute intracranial pathology Fall precautions PT evaluation Neuro consultation Chest x-ray no acute cardiopulmonary process Blood work overall unremarkable with white count of 5.2 hemoglobin 13.9 Sodium 137 potassium 4.4 BUN 29 creatinine 1.2 Urine analysis unremarkable and not suggestive of any acute infection Serum alcohol level less than 10 Diabetes mellitus Insulin sliding scale History of coronary artery disease Continue with aspirin and statin and Plavix Continue with losartan 25 mg daily continue with metoprolol 25 mg p.o. twice daily Continue with Ranexa 500 mg p.o. twice daily EKG showed T wave inversion in inferior septal leads, troponins negative, patient denies any chest pain episodes or shortness of breath Cardiology evaluation Full code DVT prophylaxis heparin subcu 3 times daily
[2023-11-08] MEDS ORDERED: DEXTROSE 50% SYRINGE 50 ML IVP PRN ×2 (06:23)
[2023-11-08 06:48] LABS: Glucose,Whole Blood 121 mg/dL (70-110)
[2023-11-08] MEDS: INSULIN ASPART (NovoLOG) 100 UNIT/ML VIAL SQ SCH (06:48)
[2023-11-08] MEDS: ASPIRIN 81 MG PO SCH (08:27)
[2023-11-08] MEDS: FINASTERIDE 5 MG TAB PO SCH (08:27)
[2023-11-08] MEDS: LOSARTAN 25 MG TAB PO SCH (08:27)
[2023-11-08] MEDS: lamoTRIgine 100 MG TAB PO SCH ×2 (08:27→20:57)
[2023-11-08] MEDS: METOPROLOL TARTRATE 25 MG TAB PO SCH (08:27)
[2023-11-08] MEDS: CLOPIDOGREL 75 MG TAB PO SCH (08:27)
[2023-11-08] MEDS: RANOLAZINE 500 MG TAB.ER.12H PO SCH (08:27)
[2023-11-08] MEDS: HEPARIN SODIUM,PORCINE 5,000 UNIT/ML 1 ML VIAL SQ SCH (08:28)
[2023-11-08 08:51] LABS: Basophils # (A) 0.03 X 10*3/uL (0.00-0.10); Basophils % (A) 0.5 %; Eosinophils # (A) 0.27 X 10*3/uL (0.04-0.35); Eosinophils % (A) 4.2 %; HCT 38.2 % (39.6-50.0); HGB 12.9 g/dL (13.0-17.0); Lymphocytes # (A) 1.05 X 10*3/uL (0.90-5.00); Lymphocytes % (A) 16.2 %; MCH 30.5 pg (27.0-32.0); MCHC 33.8 g/dL (32.0-37.0); MCV 90.3 FL (80.0-97.0); Mean Platelet Volume 10.8 FL (9.5-12.2); Monocytes # (A) 0.85 X 10*3/uL (0.20-1.00); Monocytes % (A) 13.1 %; NRBC Per 100 WBC 0 X 10*3/uL (0.00-0.01); Neutrophils # (A) 4.25 X 10*3/uL (1.80-7.70); Neutrophils % (A) 65.7 %; Platelet Count 145 X 10*3/uL (140-440); RBC 4.23 X 10*6/uL (4.40-5.60); RDW 13.8 % (11.5-14.5); WBC 6.47 X 10*3/uL (4.50-10.00)
[2023-11-08 08:53] LABS: ALT 15 U/L (10-49); AST 16 U/L (14-35); Albumin 3.5 g/dL (3.8-4.9); Albumin/Globulin Ratio 1.94 Ratio (1.60-3.17); Alkaline Phosphatase 94 U/L (41-126); BUN/Creat Ratio 19.25 Ratio (12.00-20.00); Blood Urea Nitrogen 23.1 mg/dL (9.0-27.0); Calcium 9.1 mg/dL (8.7-10.3); Carbon Dioxide 21.5 mmol/L (21.6-31.8); Chloride 104 mmol/L (96-109); Globulin 1.8 g/dL (1.6-3.3); Glucose 134 mg/dL (70-110); Potassium 4.1 mmol/L (3.5-5.5); Sodium 135 mmol/L (135-145); Total Bilirubin 0.3 mg/dL (0.3-1.2); Total Protein 5.3 g/dL (6.2-8.2)
--- NOTE | 2023-11-08 11:04 | P.CRDCN ---
History of Present Illness Consult date: 11/08/23 Reason for Consult (text): New T wave inversion inferior septal leads History of present illness: History of present illness: This is a 73-year-old male follows with [facility] logistics research engineer with past medical history of coronary artery disease with multiple PCI in the past according to the patient, hypertension, dyslipidemia and diabetes mellitus. We have been asked to evaluate the patient for new T wave inversion in inferior septal leads. Patient presented to the hospital due to mental status changes. Patient gives history that he had some confusion at home he wanted to go visit his daughter but he was not dressed appropriately. Patient denies having any chest pain or shortness of breath. Noted to have tremors. EKG sinus rhythm with right bundle branch block, left axis deviation responsible for T wave changes Chest x-ray: No acute process CAT scan of the brain revealed moderate hydrocephalus and chronic small vessel ischemic disease. No acute intracranial abnormality. WBC 6.4, hemoglobin 12.9, platelet count 145. INR 1. Electrolytes and renal function unremarkable. Glucose 134. Liver function test are normal. Troponin negative x 1. Serum alcohol less than 10. Home cardiac medications: Aspirin 81 mg daily, atorvastatin 80 mg at bedtime, Plavix 75 mg daily, Jardiance 12.5 mg daily, losartan 25 mg daily, Lopressor 25 mg twice daily, Ranexa 500 mg twice daily. Cardiac catheterization performed 08/12/[address] MAEGAN Santoyo revealed right dominant system with restenotic lesion 45% in the mid RCA and also D novel lesion in the proximal RCA both noncritical. Left main is normal. LAD has mid in-stent restenosis of 75%. Circumflex has a proximal 95% and mid 75% lesion. He subsequently underwent PCI of the proximal and mid circumflex and LAD. Echocardiogram performed 08/10/2021 revealed EF of 60 to 65%. Review Of Systems: At the time of my exam: CONSTITUTIONAL: Denies fever or chills. HEENT: Denies blurred vision, vision changes, or eye pain. Denies hemoptysis CARDIOVASCULAR: Denies chest pain. Denies orthopnea. Denies PND. Denies palpitations RESPIRATORY: Denies shortness of breath. GASTROINTESTINAL: Denies abdominal pain. Denies nausea or vomiting. HEMATOLOGIC: Denies bleeding disorders. GENITOURINARY: Denies any blood in urine. SKIN: Denies pruitis. Denies rash. Physical examination: Gen: This is a 73-year-old male resting in bed in no acute distress VS: reviewed HEENT: Head is atraumatic, normocephalic. Pupils equal, round. Sclerae is anicteric. NECK: Supple. No JVD. LUNGS: Clear to auscultation. No wheezes or rhonchi. No intercostal retractions. HEART: Regular rate and rhythm. No murmur. ABDOMEN: Soft No tenderness. EXTREMITIES: No pedal edema. No calf tenderness. NEUROLOGICAL: Patient is awake, alert and confused. Assessment: Abnormal EKG No chest pain Mental status changes History of coronary artery disease with multiple complex PCI's Hypertension Dyslipidemia Diabetes Plan: Resume patient's home cardiac medications Due to borderline platelet count, recommend discontinuing aspirin No further cardiac workup at this time. Patient may follow-up with his primary logistics research engineer at [facility]. Cardiology will sign off this case and follow on an as-needed basis. Please r econsult for any new concerns. Thank you kindly for this consultation. Nurse practitioner note has been reviewed, I agree with documented findings and plan of care. Patient was seen and examined. Past Medical History Past Medical History: Coronary Artery Disease (CAD), Chest Pain / Angina, CVA/TIA, Diabetes Mellitus, Hyperlipidemia, Hypertension, Myocardial Infarction ([place]), Prostate Disorder Additional Past Medical History / Comment(s): TREMORS Last Myocardial Infarction Date:: 07/2021 History of Any Multi-Drug Resistant Organisms: None Reported Past Surgical History: Heart Catheterization With Stent Past Anesthesia/Blood Transfusion Reactions: No Reported Reaction Date of Last Stent Placement:: 07/2021 Past Psychological History: No Psychological Hx Reported Smoking Status: Former smoker Past Alcohol Use History: Occasional Past Drug Use History: None Reported - Past Family History Father Family Medical History: Cancer Mother Family Medical History: Myocardial Infarction ([place]) Medications and Allergies Home Medications Medication Instructions Recorded Confirmed Type Aspirin 81 mg PO DAILY 08/10/21 11/07/23 History Finasteride [Proscar] 5 mg PO DAILY 08/10/21 11/07/23 History Metoprolol Tartrate [Lopressor] 25 mg PO BID 08/10/21 11/07/23 History Primidone [Mysoline] 250 mg PO HS 08/10/21 11/07/23 History Ranolazine [Ranexa] 500 mg PO BID 08/10/21 11/07/23 History Atorvastatin Calcium [Lipitor] 80 mg PO HS 08/13/21 11/07/23 History Clopidogrel Bisulfate [Plavix] 75 mg PO DAILY 08/13/21 11/07/23 History Losartan [Cozaar] 25 mg PO DAILY 08/13/21 11/07/23 History Empagliflozin [Jardiance] 12.5 mg PO DAILY 06/14/23 11/07/23 History lamoTRIgine [LaMICtal] 200 mg PO DAILY 06/14/23 11/07/23 History Carboxymethylcellulose Sodium 1 drop BOTH EYES QID 11/07/23 11/07/23 History [Thera Tears] lamoTRIgine [LaMICtal] 100 mg PO HS 11/07/23 11/07/23 History Allergies Allergy/AdvReac Type Severity Reaction Status Date / Time simvastatin AdvReac MUSCLE PAIN Verified 11/07/23 17:09 Physical Exam Vitals: Vital Signs Temp Pulse Pulse Resp BP BP Pulse Ox 11/08/23 02:00 98.5 F 62 16 132/66 97 11/07/23 23:16 98.1 F 59 L 16 122/64 98 11/07/23 22:00 61 18 126/72 98 11/07/23 20:00 65 18 133/63 97 11/07/23 18:22 53 L 18 128/67 99 11/07/23 14:55 98.1 F 58 L 16 154/75 98 Intake and Output 11/07/23 11/08/23 11/08/23 22:59 06:59 14:59 Output Total 500 1100 Balance -500 -1100 Output: Urine 500 1100 Uretheral (Hanks) 500 Other: Voiding Method Indwelling Catheter Indwelling Catheter Weight 83.915 kg Results 11/08/23 06:10 11/08/23 06:10 Cardiac Enzymes 11/07/23 11/07/23 Range/Units 15:49 15:49 AST 26 (17-59) U/L Troponin I <0.012 (0.000-0.034) ng/mL Coagulation 11/07/23 Range/Units 15:49 PT 10.9 (10.0-12.5) sec APTT 24.7 (22.0-30.0) sec CBC 11/07/23 Range/Units 15:49 WBC 5.2 (3.8-10.6) k/uL RBC 4.58 (4.30-5.90) m/uL Hgb 13.9 (13.0-17.5) gm/dL Hct 41.8 (39.0-53.0) % Plt Count 148 L (150-450) k/uL Comprehensive Metabolic Panel 11/07/23 Range/Units 15:49 Sodium 137 (137-145) mmol/L Potassium 4.4 (3.5-5.1) mmol/L Chloride 106 (98-107) mmol/L Carbon Dioxide 24 (22-30) mmol/L BUN 29 H (9-20) mg/dL Creatinine 1.21 (0.66-1.25) mg/dL Glucose 182 H (74-99) mg/dL Calcium 9.2 (8.4-10.2) mg/dL AST 26 (17-59) U/L ALT 20 (4-49) U/L Alkaline Phosphatase 127 H (38-126) U/L Total Protein 5.9 L (6.3-8.2) g/dL Albumin 3.6 (3.5-5.0) g/dL Current Medications Generic Name Dose Route Start Last Admin Trade Name Freq PRN Reason Stop Dose Admin Acetaminophen 650 mg 11/07/23 19:17 Acetaminophen Tab 325 Mg Tab PO Q6HR PRN Mild Pain or Fever > 100.5 Aspirin 81 mg 11/08/23 09:00 11/08/23 08:27 Aspirin 81 Mg PO 81 mg DAILY MATTHIAS Administration Atorvastatin Calcium 80 mg 11/08/23 21:00 Atorvastatin 80 Mg Tab PO HS ON LICENSE OF [facility] Clopidogrel Bisulfate 75 mg 11/08/23 09:00 11/08/23 08:27 Clopidogrel 75 Mg Tab PO 75 mg DAILY MATTHIAS Administration Dextrose/Water 25 ml 11/08/23 06:23 Dextrose 50% Syringe 50 Ml IVP PER PROTOCOL PRN Hypoglycemia Protocol Dextrose/Water 50 ml 11/08/23 06:23 Dextrose 50% Syringe 50 Ml IVP PER PROTOCOL PRN Hypoglycemia Protocol Finasteride 5 mg 11/08/23 09:00 11/08/23 08:27 Finasteride 5 Mg Tab PO 5 mg DAILY MATTHIAS Administration Heparin Sodium (Porcine) 5,000 unit 11/08/23 08:00 11/08/23 08:28 Heparin Sodium,Porcine 5,000 Unit/Ml 1 Ml Vial SQ 5,000 unit Q8HR MATTHIAS Administration Insulin Aspart 0 unit 11/08/23 07:30 11/08/23 06:48 Insulin Aspart (Novolog) 100 Unit/Ml Vial SQ Not Given ACHS ON LICENSE OF [facility] Protocol Lamotrigine 100 mg 11/08/23 21:00 Lamotrigine 100 Mg Tab PO HS ON LICENSE OF [facility] Lamotrigine 200 mg 11/08/23 09:00 11/08/23 08:27 Lamotrigine 100 Mg Tab PO 200 mg DAILY MATTHIAS Administration Losartan Potassium 25 mg 11/08/23 09:00 11/08/23 08:27 Losartan 25 Mg Tab PO 25 mg DAILY MATTHIAS Administration Metoprolol Tartrate 25 mg 11/08/23 09:00 11/08/23 08:27 Metoprolol Tartrate 25 Mg Tab PO 25 mg BID MATTHIAS Administration Naloxone HCl 0.2 mg 11/07/23 19:17 Naloxone 0.4 Mg/Ml 1 Ml Vial IV Q2M PRN Opioid Reversal Primidone 250 mg 11/08/23 21:00 Primidone 250 Mg Tab PO HS ON LICENSE OF [facility] Ranolazine 500 mg 11/08/23 09:00 11/08/23 08:27 Ranolazine 500 Mg Tab.Er.12h PO 500 mg BID MATTHIAS Administration Intake and Output 11/07/23 11/08/23 11/08/23 22:59 06:59 14:59 Output Total 500 1100 Balance -500 -1100 Output: Urine 500 1100 Uretheral (Hanks) 500 Other: Voiding Method Indwelling Catheter Indwelling Catheter Weight 83.915 kg 11/07/23 15:49 11/07/23 15:49
--- NOTE | 2023-11-08 12:14 | P.PN ---
Subjective Progress Note Date: 11/08/23 Hospital Course: 73-year-old male with history of CAD status post multiple PCI, hypertension, hyperlipidemia, type 2 diabetes, tremor presenting with acute encephalopathy. Vital signs within normal limits. CBC unremarkable. BMP showed creatinine of 1.21, troponin negative. Urinalysis negative. Serum alcohol level negative. Chest x-ray was unremarkable. Brain CT did not show any acute process, but did show moderate hydrocephalus, possible NPH. EKG showed sinus bradycardia with nonspecific ST-T wave changes. Neurology and cardiology consulted. Subjective: Patient seen and examined at bedside. No acute events overnight. Mental status within normal limits Pertinent positives and negatives as discussed above, a complete review of systems was performed and all other systems are negative. Vitals Signs Reviewed. General: Nontoxic, no distress, appears at stated age Derm: Warm, dry Head: Atraumatic, normocephalic, symmetric Eyes: EOMI, no lid lag, anicteric sclera Mouth: No lip lesion, mucus membranes moist Cardiovascular: S1S2 reg, no murmur Lungs: CTA bilateral, no rhonchi, no rales, no accessory muscle use Abdominal: Soft, nontender to palpation, no guarding, no appreciable organomegaly Ext: No gross muscle atrophy, no edema, no contractures Neuro: CN II-XI grossly intact, no focal neuro deficits Psych: Alert, oriented, appropriate affect Data Reviewed Today: Pertinent Labs: WBC 6.47, hemoglobin 12.9, platelet 145, potassium 4.1, creatinine 1.2, blood glucose range between 1 21-1 82 Imaging: No new imaging Assessment and Plan: Active: Acute metabolic encephalopathy, resolved Moderate hydrocephalus, possible component of NPH Neurology evaluation Neurochecks, fall precautions PT evaluation History of tremors On primidone 250 nightly Unclear why patient is on Lamictal 300 daily Abnormal EKG History of CAD Cardiology note reviewed, continue home medications, 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 Continue aspirin, statin, Plavix, Ranexa No active chest pain Type 2 diabetes Sliding scale insulin, monitor for hypoglycemia Chronic: Hypertension BPH DVT ppx: Subcu heparin Code status: Full code Anticipated discharge place: Pending clinical course Anticipated discharge time: Pending clinical course Objective - Vital Signs Vital signs: Vital Signs Temp 98.9 F 11/08/23 07:00 Pulse 64 11/08/23 07:00 Resp 16 11/08/23 07:00 BP 122/63 11/08/23 07:00 Pulse Ox 98 11/08/23 07:00 FiO2 Intake & Output 11/07/23 11/08/23 11/08/23 18:59 06:59 18:59 Intake Total 118 Output Total 500 1100 Balance -500 -1100 118 Weight 83.915 kg 83.915 kg Intake: Oral 118 Output: Urine 500 1100 Uretheral (Hanks) 500 Other: Voiding Method Indwelling Catheter Indwelling Catheter - Labs CBC & Chem 7: 11/08/23 06:10 11/08/23 06:10 Labs: Abnormal Lab Results - Last 24 Hours (Table) 11/07/23 11/07/23 11/07/23 Range/Units 15:49 15:49 15:49 RBC (4.40-5.60) X 10*6/uL Hgb (13.0-17.0) g/dL Hct (39.6-50.0) % Plt Count 148 L (150-450) k/uL Lymphocytes # 0.9 L (1.0-4.8) k/uL Carbon Dioxide (21.6-31.8) mmol/L BUN 29 H (9-20) mg/dL Glucose 182 H (74-99) mg/dL POC Glucose (mg/dL) (70-110) mg/dL Alkaline Phosphatase 127 H (38-126) U/L Total Protein 5.9 L (6.3-8.2) g/dL Albumin (3.8-4.9) g/dL Urine Glucose (UA) 4+ H (Negative) 11/08/23 11/08/23 11/08/23 Range/Units 06:10 06:10 06:46 RBC 4.23 L (4.40-5.60) X 10*6/uL Hgb 12.9 L (13.0-17.0) g/dL Hct 38.2 L (39.6-50.0) % Plt Count (150-450) k/uL Lymphocytes # (1.0-4.8) k/uL Carbon Dioxide 21.5 L (21.6-31.8) mmol/L BUN (9-20) mg/dL Glucose 134 H (74-99) mg/dL POC Glucose (mg/dL) 121 H (70-110) mg/dL Alkaline Phosphatase (38-126) U/L Total Protein 5.3 L (6.3-8.2) g/dL Albumin 3.5 L (3.8-4.9) g/dL Urine Glucose (UA) (Negative)
[2023-11-08 12:52] LABS: Glucose,Whole Blood 188 mg/dL (70-110)
[2023-11-08] MEDS: TAMSULOSIN 0.4 MG CAP.ER.24H PO SCH (15:00)
--- NOTE | 2023-11-08 15:13 | P.CNNES ---
History of Present Illness Consult date: 11/08/23 Requesting physician: Anthony Farrell Reason for Consult: Altered mental status, evaluate for NPH versus other History of Present Illness: Patient is a 73-year-old right-handed male, with history of NPH, diabetes, recently diagnosed tongue cancer, came to the hospital yesterday at 2:43 PM. for altered mental status. Patient states that he had an incident on Monday, when he wanted to see his who is in the group home, and his daughter would not let him go because it was too late at 9:30 PM. He said he went downstairs, put some more clothing, came back upstairs and told his daughter that he wanted to see his again. She said he could not go because it was too late then he went to sleep. I called patient's daughter Kallie, who provided with a very detailed history. Apparently this incident happened Monday night at 9:30 PM. She says that he was doing fine on Monday. On Monday night at 9:30 PM patient went to bed. About an hour later he came upstairs was in his underwear, wearing 1 shoe with no so cks, T-shirt and a cowboy hat. He told her that he wanted to see his , who declined then he went downstairs cussing at her. About 20 to 30 minutes later he came back upstairs in [facility], wearing 2 different shoes T-shirt backwards I had veering backwards and wanted to see his at 10 PM. She told him that it was too late and then he went downstairs. An hour later he came back the third time, wearing jacket backwards, no pants trying to put his shirt as planned., Could not walk well falling into the wall. He has moved furniture, head chair in the middle of the room, had moved his toothbrush and the kitchen sink was running. She sat with him, and finally at 1 AM patient went to sleep. Next morning on Monday, he stayed home was somewhat unstable, slightly confused. Yesterday on Monday he was better, drove and went to see his mom . When he was at the care house, he got up to answer the doorbell, and he lost balance and fell. He was very wobbly. Therefore patient's son-in-law brought him to the hospital. Patient's daughter denies any stroke symptoms like slurred speech facial droop, focal numbness tingling or weakness. Vital signs on arrival blood pressure 154/75, pulse rate 58, temperature 98.1. Blood test shows normal CBC, PT PTT, normal electrolytes, BUN 29, renal functions normal. Hepatic panel normal, troponin negative. UA negative. Blood alcohol level negative. EKG shows sinus bradycardia. CT head revealed moderate hydrocephalus with Sandoval ratio calculated at 0.40. Correlate to exclude a component of NPH. Moderate patchy burden of chronic small vessel ischemic disease. Otherwise no acute process. I personally reviewed CT head, agree with the findings. Mild to moderate hydrocephalus. However there is significant cortical atrophy as well, with prominent of this sylvian fissures bilaterally. Chest x-ray revealed no acute cardiopulmonary disease. Patient had a VENKAT scan performed on 12/02/2021, which was normal, against a diagnosis of idiopathic Parkinson's disease or parkinsonian syndrome, and is seen in healthy individuals and also patients with essential tremor, drug-induced parkinsonism and vascular pseudoparkinsonism. Patient's daughter mentions that lately patient has been confused, getting worse. He takes medication and then forgets that he has already taken the medication. He would put coffee in the microwave and then forgets. He has been urinating on himself a lot quite some time. She mentions that patient was seen by Dr. Cardoza office about 1-1/2 years ago for possible NPH. He underwent lumbar puncture and after that he improved a lot. He maintained the benefit for several months. Just in the last 6 months, he has been getting worse again, with increased frequency of falls. Patient's daughter mentions that he has been incontinent of urine for last 2 to 3 months. He does not use any assistive de vice otherwise. Patient has history of diabetes for years, drinks about 2-3, 40 ounce alcohol every day although he claims that he only drinks 3 to 4 days a week. He has history of chewing tobacco "10/04 for as long as she can remember. Patient has been diagnosed with mouth cancer last week after he underwent tongue biopsy. He has possible surgery scheduled 11/20/2023. Patient takes primidone 250 mg at bedtime, metoprolol 25 mg twice daily, Proscar, aspirin 81 mg, Plavix 75 mg, losartan 25 mg, Lipitor 80 mg, Lamictal 200 mg daily in the morning and Lamictal 100 mg at bedtime. Patient is on DAPT for history of 16 stents in the heart. Review of Systems Constitutional: Denies chills, Denies fever Eyes: bilateral blurred vision (cataracts), denies diplopia, denies pain Ears: bilateral: decreased hearing (age), deny: ear discharge Ears, nose, mouth and throat: Denies headache, Denies sore throat, Denies vertigo Cardiovascular: Denies chest pain, Denies lightheadedness, Denies shortness of breath Respiratory: Denies cough, Denies excessive sputum Gastrointestinal: Reports nausea, Denies abdominal pain, Denies diarrhea, Denies vomiting Genitourinary: Reports incontinence, Reports urinary frequency Musculoskeletal: Denies low back pain, Denies myalgias, Denies neck pain Integumentary: Denies pruritus, Denies rash Neurological: Reports as per HPI Psychiatric: Reports confusion, Reports memory loss, Denies anxiety, Denies depression Endocrine: Denies fatigue, Denies weight change Hematologic/Lymphatic: Reports easy bruising, Denies easy bleeding Past Medical History Past Medical History: Coronary Artery Disease (CAD), Chest Pain / Angina, CVA/TIA, Diabetes Mellitus, Hyperlipidemia, Hypertension, Myocardial Infarction ([place]), Prostate Disorder Additional Past Medical History / Comment(s): TREMORS Last Myocardial Infarction Date:: 07/2021 History of Any Multi-Drug Resistant Organisms: None Reported Past Surgical History: Heart Catheterization With Stent Past Anesthesia/Blood Transfusion Reactions: No Reported Reaction Date of Last Stent Placement:: 07/2021 Past Psychological History: No Psychological Hx Reported Smoking Status: Former smoker (Chews tobacco every day) Past Alcohol Use History: Daily Past Drug Use History: None Reported - Past Family History Father Family Medical History: Cancer Mother Family Medical History: Myocardial Infarction ([place]) Medications and Allergies Home Medications Medication Instructions Recorded Confirmed Type Aspirin 81 mg PO DAILY 08/10/21 11/07/23 History Finasteride [Proscar] 5 mg PO DAILY 08/10/21 11/07/23 History Metoprolol Tartrate [Lopressor] 25 mg PO BID 08/10/21 11/07/23 History Primidone [Mysoline] 250 mg PO HS 08/10/21 11/07/23 History Ranolazine [Ranexa] 500 mg PO BID 08/10/21 11/07/23 History Atorvastatin Calcium [Lipitor] 80 mg PO HS 08/13/21 11/07/23 History Clopidogrel Bisulfate [Plavix] 75 mg PO DAILY 08/13/21 11/07/23 History Losartan [Cozaar] 25 mg PO DAILY 08/13/21 11/07/23 History Empagliflozin [Jardiance] 12.5 mg PO DAILY 06/14/23 11/07/23 History lamoTRIgine [LaMICtal] 200 mg PO DAILY 06/14/23 11/07/23 History Carboxymethylcellulose Sodium 1 drop BOTH EYES QID 11/07/23 11/07/23 History [Thera Tears] lamoTRIgine [LaMICtal] 100 mg PO HS 11/07/23 11/07/23 History Tamsulosin HCl [Flomax] 0.8 mg PO DAILY 11/08/23 11/08/23 History Allergies Allergy/AdvReac Type Severity Reaction Status Date / Time simvastatin AdvReac MUSCLE PAIN Verified 11/07/23 17:09 Physical Examination - Vital Signs Vital Signs: Vital Signs Temp Pulse Pulse Resp BP BP BP 11/08/23 07:00 98.9 F 64 16 122/63 11/08/23 02:00 98.5 F 62 16 132/66 11/07/23 23:16 98.1 F 59 L 16 122/64 11/07/23 22:00 61 18 126/72 11/07/23 20:00 65 18 133/63 11/07/23 18:22 53 L 18 128/67 11/07/23 14:55 98.1 F 58 L 16 154/75 Pulse Ox 11/08/23 07:00 98 11/08/23 02:00 97 11/07/23 23:16 98 11/07/23 22:00 98 11/07/23 20:00 97 11/07/23 18:22 99 11/07/23 14:55 98 Intake and Output 11/07/23 11/08/23 11/08/23 22:59 06:59 14:59 Intake Total 118 Output Total 500 1100 Balance -500 -1100 118 Intake: Oral 118 Output: Urine 500 1100 Uretheral (Hanks) 500 Other: Voiding Method Indwelling Catheter Indwelling Catheter Weight 83.915 kg Patient is an elderly male, very pleasant, in no acute distress. Patient is alert awake oriented to time place and person. Patient knows it is October 2023 and that he is in [facility] in [facility]. He knows name of the current president Mr. Fransisco Dela Cruz. Speech and language functions are normal. Patient can name and repeat very well. No aphasia or dysarthria. Attention, concentration and fund of knowledge is adequate. On cranial nerve examination, pupils are equal, round and reacting to light, visual gloria are full on confrontation, with no neglect on double simultaneous stimulation. Extraocular muscles are intact with no nystagmus. Face is symmetric, tongue protrudes to the midline. Palatal elevation and sensation normal, hearing and shoulder shrug normal, facial sensation normal. On muscle strength testing, there is no pronator drift and the strength is normal in arms and legs distally and proximally. Deep tendon reflexes are symmetric very hypoactive and plantars are downgoing. Sensory to touch is equal with no neglect on double simultaneous stimulation. Cerebellar function showed no ataxia for [id number] testing. No dysdiadoc hokinesia. No ataxia for [id number] testing on either side. Tone and bulk of muscles normal. Gait deferred.. On general examination, there is no carotid bruit or murmur, S1-S2 audible. Chest is clear on consultation. Abdomen is soft nontender. No organomegaly, bowel sounds present. Peripheral pulses are present. No peripheral edema. Results - Laboratory Findings CBC and BMP: 11/08/23 06:10 11/08/23 06:10 Abnormal Lab Findings: Abnormal Labs 11/07/23 11/07/23 11/07/23 15:49 15:49 15:49 RBC Hgb Hct Plt Count 148 L Lymphocytes # 0.9 L Carbon Dioxide BUN 29 H Glucose 182 H POC Glucose (mg/dL) Alkaline Phosphatase 127 H Total Protein 5.9 L Albumin Urine Glucose (UA) 4+ H 11/08/23 11/08/23 11/08/23 06:10 06:10 06:46 RBC 4.23 L Hgb 12.9 L Hct 38.2 L Plt Count Lymphocytes # Carbon Dioxide 21.5 L BUN Glucose 134 H POC Glucose (mg/dL) 121 H Alkaline Phosphatase Total Protein 5.3 L Albumin 3.5 L Urine Glucose (UA) Assessment and Plan Assessment: * Probable normal pressure hydrocephalus. It was diagnosed 1-1/2 years ago, and patient underwent therapeutic spinal tap, and patient did well for a number of months. The symptoms have reappeared slowly in the last 6 months with increased frequency of fall, and more recent onset of incontinence. Patient has presented because of developing mental confusion, disorientation for 1 day prior to arrival. Patient's daughter believes that he has been slightly more confused lately. Suspect worsening of NPH. * Recent diagnosis of tongue cancer 1 week ago, being worked up at [facility]. * History of a seizure 20+ years ago, on Lamictal since then. * Diabetes * Hypertension * Hyperlipidemia * Coronary artery disease * Chews tobacco * Alcoholism Plan: * It appears patient's normal pressure hydrocephalus has again become sympt omatic. He has developed increased frequency falls, incontinence and more recent onset of memory disturbance. He may be a candidate for ventriculoperitoneal shunt placement, as he responded very well to therapeutic spinal tap performed 1-1/2 years ago, when he remained in remission for several months afterwards. At present lumbar puncture cannot be performed because patient is on Plavix. * I discussed with patient's daughter in detail. She discussed about NPH with patient's ENT surgeon at [facility]. They would not perform tongue surgery until his NPH has been treated/evaluated. They are recommending patient undergo evaluation for possible NPH, and if needed, ventricular peritoneal sh unt placement. Once stable, then they will proceed with surgery for tongue cancer. Family requesting patient to be transferred to [facility] or [place] for neurosurgical evaluation. * Patient is currently on aspirin and Plavix for history of multiple cardiac stents. Consider holding Plavix for possible therapeutic lumbar puncture versus need for shunt placement, if okay from cardiology/IM standpoint. * Patient has history of seizure about 20+ years ago, for which he has been on Lamictal. We will check Lamictal level, B12, folate, A1c. * Recommend complete tobacco cessation, abstinence from alcohol. * Will discuss with primary physician * Neurology will follow. Thank you for the consult. Addendum: Discussed with primary physician in detail. Also discussed with patient's daughter and spoke to her on the phone multiple times. She mentioned that patient has to be transferred to [facility] first, but if they decline, then can be transferred to another hospital. She later discussed with her family and decided to keep patient in the [facility]. We will consider taking him off Plavix, if okay from medical/cardiology standpoint. After 5 days of stopping Plavix, patient will undergo large-volume spinal tap for NPH. If it produces remarkable improvement, then patient could be discharged and follow-up with neurosurgeon as an outpatient. Time with Patient: Greater than 30
[2023-11-08 17:33] LABS: Glucose,Whole Blood 134 mg/dL (70-110)
[2023-11-08] MEDS: PRIMIDONE 250 MG TAB PO SCH (20:57)
[2023-11-08] MEDS: ATORVASTATIN 80 MG TAB PO SCH (20:57)
[2023-11-08 21:02] LABS: Glucose,Whole Blood 180 mg/dL (70-110)
[2023-11-09 05:58] LABS: Glucose,Whole Blood 144 mg/dL (70-110)
--- NOTE | 2023-11-09 09:35 | P.PN ---
Subjective Progress Note Date: 11/09/23 Reason for Consult (text): New T wave inversion inferior septal leads History of present illness: History of present illness: This is a 73-year-old male follows with [facility] with past medical history of coronary artery disease with multiple PCI in the past according to the patient, hypertension, dyslipidemia and diabetes mellitus. We have been asked to evaluate the patient for new T wave inversion in inferior septal leads. Patient presented to the hospital due to mental status changes. Patient gives history that he had some confusion at home he wanted to go visit his daughter but he was not dressed appropriately. Patient denies having any chest pain or shortness of breath. Noted to have tremors. EKG sinus rhythm with right bundle branch block, left axis deviation responsible for T wave changes Chest x-ray: No acute process CAT scan of the brain revealed moderate hydrocephalus and chronic small vessel ischemic disease. No acute intracranial abnormality. WBC 6.4, hemoglobin 12.9, platelet count 145. INR 1. Electrolytes and renal function unremarkable. Glucose 134. Liver function test are normal. Troponin negative x 1. Serum alcohol less than 10. Home cardiac medications: Aspirin 81 mg daily, atorvastatin 80 mg at bedtime, Plavix 75 mg daily, Jardiance 12.5 mg daily, losartan 25 mg daily, Lopressor 25 mg twice daily, Ranexa 500 mg twice daily. Cardiac catheterization performed 08/12/[address] MAEGAN Santoyo revealed right dominant system with restenotic lesion 45% in the mid RCA and also D novel lesion in the proximal RCA both noncritical. Left main is normal. LAD has mid in-stent restenosis of 75%. Circumflex has a proximal 95% and mid 75% lesion. He subsequently underwent PCI of the proximal and mid circumflex and LAD. Echocardiogram performed 08/10/2021 revealed EF of 60 to 65%. 11/09 Neurology is planning for lumbar puncture and patient is currently on Plavix and aspirin. Recommendations have been discussed with neurology as well as attending. Recommendations regarding use of Plavix and aspirin: Plavix to be held 4 to 5 days prior to the lumbar puncture and continue aspirin 81 mg daily because of patient's extensive coronary artery disease and prior in-stent restenosis. Following the procedure, patient to resume both aspirin and Plavix. Physical examination: Gen: This is a 73-year-old male resting in bed in no acute distress VS: reviewed HEENT: Head is atraumatic, normocephalic. Pupils equal, round. Sclerae is anicteric. LUNGS: Clear to auscultation. No wheezes or rhonchi. No intercostal retractions. HEART: Regular rate and rhythm. No murmur. EXTREMITIES: No pedal edema. No calf tenderness. Assessment: Abnormal EKG No chest pain Mental status changes History of coronary artery disease with multiple complex PCI's Hypertension Dyslipidemia Diabetes Plan: Continue patient's home cardiac medications See above Cardiology will sign off this case and follow on an as-needed basis. Please reconsult for any new concerns. Patient may follow-up with [facility] in one to 2 weeks. Nurse practitioner note has been reviewed, I agree with documented findings and plan of care. Patient was seen and examined. Objective - Vital Signs Vital signs: Vital Signs Temp 98.3 F 11/09/23 03:26 Pulse 58 L 11/09/23 03:26 Resp 17 11/09/23 03:26 BP 108/66 11/09/23 03:26 Pulse Ox 96 11/09/23 03:26 FiO2 Intake & Output 11/08/23 11/09/23 11/09/23 18:59 06:59 18:59 Intake Total 736 Output Total 1750 1000 Balance -1014 -1000 Intake: Oral 736 Output: Urine 1750 1000 Other: Voiding Method Indwelling Catheter Indwelling Catheter Indwelling Catheter # Bowel Movements 0 - Labs CBC & Chem 7: 11/08/23 06:10 11/08/23 06:10 Labs: Abnormal Lab Results - Last 24 Hours (Table) 11/08/23 11/08/23 11/08/23 Range/Units 12:50 17:32 21:01 POC Glucose (mg/dL) 188 H 134 H 180 H (70-110) mg/dL Hemoglobin A1c (<=6.0) % 11/09/23 11/09/23 Range/Units 05:37 05:57 POC Glucose (mg/dL) 144 H (70-110) mg/dL Hemoglobin A1c 7.2 H (<=6.0) %
[2023-11-09 12:29] LABS: Glucose,Whole Blood 160 mg/dL (70-110)
[2023-11-09] MEDS ORDERED: ASPIRIN 81 MG PO SCH (14:15)
[2023-11-09 15:26] VITALS: BP 150/74; PULSE 66; RESP 15; TEMP 97.8
--- NOTE | 2023-11-09 17:16 | P.DS ---
Providers Date of admission: 11/07/23 19:18 Expected date of discharge: 11/09/23 Attending physician: Barry Pavon MD Consults: 11/07/23 19:17 Consult Physician Routine Consulting Provider: Farrukh Felder Consult Reason/Comments: Altered mental status, evaluate for NPH versus other Do you want consulting provider notified?: Yes 11/08/23 06:22 Consult Physician Routine Consulting Provider: Trenton Traore Consult Reason/Comments: new t wave inversion infero septal leads Do you want consulting provider notified?: Yes Primary care physician: Physician Nonstaff Hospital Course: Acute metabolic encephalopathy, resolved Moderate hydrocephalus, possible component of NPH History of tremors Abnormal EKG History of CAD Type 2 diabetes Hypertension BPH Hospital Course: 73-year-old male with history of CAD status post multiple PCI, hypertension, hyperlipidemia, type 2 diabetes, tremor presenting with acute encephalopathy. Vital signs within normal limits. CBC unremarkable. BMP showed creatinine of 1.21, troponin negative. Urinalysis negative. Serum alcohol level negative. Chest x-ray was unremarkable. Brain CT did not show any acute process, but did show moderate hydrocephalus, possible NPH. EKG showed sinus bradycardia with nonspecific ST-T wave changes. Neurology and cardiology consulted. Pts gait abnormalities were attributed to NPH according to neurology, who recommended lumbar puncture. Discussed the possibility of lumbar puncture however, patient is on aspirin and Plavix for significant multivessel coronary disease. Therefore, I discussed the case with cardiology recommended patient stay on aspirin and hold Plavix for the timeframe required for LP and then resume both medications afterwards. When I discussed this case further with Dr. Barnett who will be doing the procedure and pain clinic next , he recommended holding the aspirin 48 hours before hand. This was discussed with patient as well as patient's family, and the loop was closed with neurology, cardiology. Patient's discharge instructions reflected this plan. Patient was discharged home with PCP and pain clinic follow-up, advised to [facility] as well as his oncologist for further management of his head and neck cancer. I spent 50 minutes coordinating this discharge on 11/09 Gen: In NAD, non-toxic HEENT: normocephalic, atraumatic, hearing acuity is intant, mucous membranes moist CVS: perfusing all extremities well, no pitting edema, Respiratory: symmetric chest expansion, no accessory muscle use, GI: soft, NTTP, ND, : no suprapubic tenderness, no CVA tenderness MSK/Derm: no rashes, cyanosis Neuro: CN II-XII intact, no motor weakness, Psych: cooperative, euthymic mood, judgment and insight is intact Patient Condition at Discharge: Stable Plan - Discharge Summary New Discharge Prescriptions: Continue Primidone [Mysoline] 250 mg PO HS Metoprolol Tartrate [Lopressor] 25 mg PO BID lamoTRIgine [LaMICtal] 200 mg PO DAILY Carboxymethylcellulose Sodium [Thera Tears] 1 drop BOTH EYES QID lamoTRIgine [LaMICtal] 100 mg PO HS Tamsulosin HCl [Flomax] 0.8 mg PO DAILY Finasteride [Proscar] 5 mg PO DAILY Ranolazine [Ranexa] 500 mg PO BID Aspirin 81 mg PO DAILY Losartan [Cozaar] 25 mg PO DAILY Atorvastatin Calcium [Lipitor] 80 mg PO HS Empagliflozin [Jardiance] 12.5 mg PO DAILY Discontinued Clopidogrel Bisulfate [Plavix] 75 mg PO DAILY Discharge Medication List Aspirin 81 mg PO DAILY 08/10/21 [History] Finasteride [Proscar] 5 mg PO DAILY 08/10/21 [History] Metoprolol Tartrate [Lopressor] 25 mg PO BID 08/10/21 [History] Primidone [Mysoline] 250 mg PO HS 08/10/21 [History] Ranolazine [Ranexa] 500 mg PO BID 08/10/21 [History] Atorvastatin Calcium [Lipitor] 80 mg PO HS 08/13/21 [History] Losartan [Cozaar] 25 mg PO DAILY 08/13/21 [History] Empagliflozin [Jardiance] 12.5 mg PO DAILY 06/14/23 [History] lamoTRIgine [LaMICtal] 200 mg PO DAILY 06/14/23 [History] Carboxymethylcellulose Sodium [Thera Tears] 1 drop BOTH EYES QID 11/07/23 [History] lamoTRIgine [LaMICtal] 100 mg PO HS 11/07/23 [History] Tamsulosin HCl [Flomax] 0.8 mg PO DAILY 11/08/23 [History] Follow up Appointment(s)/Referral(s): Nonstaff,Physician [Primary Care Provider] - 1-2 days Residential Home,Health [NON-STAFF] - 1-2 Days (will call to set up appointment, any questions please call agency or [facility]) Patient Instructions/Handouts: Altered Mental Status (GEN) Activity/Diet/Wound Care/Special Instructions: Your LUMBAR PUNCTURE is scheduled with Dr. Barnett from Pain Clinic on October. Please HOLD (Do not take) your plavix until after the procedure. Please HOLD your aspirin the day of (Mon, 11/15) and day before (Mon, 11/14) the procedure. After your LUMBAR PUNCTURE is completed, please take both aspirin and plavix and continue to take both of these medications daily. Continue your routine f/u with Neurology. Discharge Disposition: HOME WITH HOME HEALTH SERVICES
--- NOTE | 2023-11-10 12:28 | P.PN ---
Subjective Progress Note Date: 11/09/23 Patient was seen for a follow-up. Patient's son-in-law was also present at this time. Patient states that he is doing fine. He walks good. States that he has a walking stick at home. Patient admits to drinking 4 tall beers per day. Denies any focal symptoms. Objective - Vital Signs Vital signs: Vital Signs Temp 98.0 F 11/09/23 07:00 Pulse 51 L 11/09/23 07:00 Resp 16 11/09/23 07:00 BP 137/70 11/09/23 07:00 Pulse Ox 97 11/09/23 07:00 FiO2 Intake & Output 11/08/23 11/09/23 11/09/23 18:59 06:59 18:59 Intake Total 736 240 Output Total 1750 1000 600 Balance -1014 -1000 -360 Intake: Oral 736 240 Output: Urine 1750 1000 600 Other: Voiding Method Indwelling Catheter Indwelling Catheter Indwelling Catheter # Bowel Movements 0 - Exam Mental status, speech and language functions are normal. Muscle strength is normal. No ataxia. I had patient walk in the hallway. He was steady, but appeared somewhat unsteady when turning around. He definitely will benefit from using walker. Per nursing report, patient is declining physical therapy or ready to use walker. He has a walking stick which I recommended him to use regularly. Alternatively, 4-prong cane may be a better choice although walker is the best. - Labs CBC & Chem 7: 11/08/23 06:10 11/08/23 06:10 Labs: Abnormal Lab Results - Last 24 Hours (Table) 11/08/23 11/08/23 11/09/23 Range/Units 17:32 21:01 05:37 POC Glucose (mg/dL) 134 H 180 H (70-110) mg/dL Hemoglobin A1c 7.2 H (<=6.0) % 11/09/23 11/09/23 Range/Units 05:57 12:16 POC Glucose (mg/dL) 144 H 160 H (70-110) mg/dL Hemoglobin A1c (<=6.0) % Assessment and Plan Assessment: * Probable normal pressure hydrocephalus. It was diagnosed 1-1/2 years ago, and patient underwent therapeutic spinal tap, and patient did well for a number of months. The symptoms have reappeared slowly in the last 6 months with increased frequency of fall, and more recent onset of incontinence. Patient has presented because of developing mental confusion, disorientation for 1 day prior to arrival. Patient's daughter believes that he has been slightly more confused lately. Suspect worsening of NPH. * Recent diagnosis of tongue cancer 1 week ago, being worked up at [facility]. * History of a seizure 20+ years ago, on Lamictal since then. * Diabetes * Hypertension * Hyperlipidemia * Coronary artery disease * Chews tobacco * Alcoholism Plan: * It appears patient's normal pressure hydrocephalus has again become symptomatic. He has developed increased frequency falls, incontinence and more recent onset of memory disturbance. He may be a candidate for ventriculoperitoneal shunt placement, as he responded very well to therapeutic spinal tap performed 1-1/2 years ago, when he remained in remission for several months afterwards. At present lumbar puncture cannot be performed because patient is on Plavix. We had a prolonged discussion with primary team, patient's family, who had discussed with patient's ENT at [facility] on the telephone. * It was mutually decided that patient will undergo therapeutic spinal tap, instead of ventriculoperitoneal shunt. The former can be performed faster and may have therapeutic benefit for fairly long time like it happened last time. Patient also is in the process of getting treatment for tongue cancer, otherwise ventriculoperitoneal shunting will delay the treatment for tongue c ancer. Patient will stop Plavix for 7 days, then undergo therapeutic lumbar puncture by Dr. Barnett in pain clinic. Patient will continue aspirin during this time because of multiple cardiac stents. Once he has completed lumbar puncture, he will go back on dual antiplatelet medications. Cardiology has seen the patient and cleared for holding off on Plavix for now. * Patient has history of seizure about 20+ years ago, for which he has been on Lamictal. We will check Lamictal level 3.5 (2-15), B12 364, folate 16.0, A1c 7.2. Patient's vitamin B12 is borderline, recommended to take vitamin B12 1000 mcg sublingually daily. Discussed with patient's daughter. * Recommend complete tobacco cessation, abstinence from alcohol. * Neurologically clear for discharge, if cleared by PT and OT. Discussed with primary physician in detail.
== END 2023-11-09 15:18 | disposition home health service (06) ==
LOC: EC 14:43 → 6NMEDSUR 19:18
PROVIDERS: ADMIT Student in an Organized Health Care Education/Training Program; ATTEND Student in an Organized Health Care Education/Training Program
DX: G93.41 Metabolic encephalopathy (principal); C02.9 Malignant neoplasm of tongue, unspecified; R94.31 Abnormal electrocardiogram [ECG] [EKG]; G91.9 Hydrocephalus, unspecified; R25.1 Tremor, unspecified; I25.10 Atherosclerotic heart disease of native coronary artery without angina pectoris; E11.9 Type 2 diabetes mellitus without complications; E78.5 Hyperlipidemia, unspecified; I10 Essential (primary) hypertension; I25.2 Old myocardial infarction; G40.909 Epilepsy, unspecified, not intractable, without status epilepticus; N40.0 Benign prostatic hyperplasia without lower urinary tract symptoms; F10.20 Alcohol dependence, uncomplicated; F17.220 Nicotine dependence, chewing tobacco, uncomplicated; Y90.0 Blood alcohol level of less than 20 mg/100 ml; Z86.73 Personal history of transient ischemic attack (TIA), and cerebral infarction without residual deficits; Z95.5 Presence of coronary angioplasty implant and graft; Z79.4 Long term (current) use of insulin; Z79.02 Long term (current) use of antithrombotics/antiplatelets; Z79.82 Long term (current) use of aspirin; Z79.84 Long term (current) use of oral hypoglycemic drugs; Z79.899 Other long term (current) drug therapy
CPT/HCPCS: 96372 ×2; 99285; 36415; 93005; 97162; 84425; 80053 ×2; 80175; 82607; 82746; 84484; 85025 ×2; 85610; 85730; 81003; 80320; 83036; 71046; 70450; G0378 ×3; S0138 ×2; J1644 ×2

== ENCOUNTER 2023-11-16 09:30 | Day surgery (SDC) | payer MEDICARE, OTHER ==
[2023-11-16] MEDS: LACTATED RINGERS 1,000 ML IV SCH (10:45)
[2023-11-16 10:57] LABS: Glucose,Whole Blood 145 mg/dL (70-110)
[2023-11-16 11:04] VITALS: TEMP 97
[2023-11-16] MEDS: IV FLUID CONTINUATION 1,000 ML IV ONE (11:50)
--- NOTE | 2023-11-16 11:51 | P.PCN ---
Description of Procedure: Preprocedure diagnosis. Mental status change. Postprocedure diagnosis. As above. Procedure done. Lumbar puncture and collection of cerebrospinal fluid. Anesthesia. Local infiltration with anesthetics. Continuous pulse ox, EKG, blood pressure and verbal communication was maintained with the patient. Blood loss. None. Indication. Discussed the procedure, alternatives, complications which may include infection, nerve damage, paralysis, aggravation of the symptoms especially bleeding in the spine and posterior dural puncture headache with the patient. The patient understands and questions were answered. Procedure note. After getting concentration in the procedure room in lateral position. Back prepped with chlorhexidine and draped in sterile fashion. After injecting 3 mL of 1% lidocaine subcutaneously, a 22-gauge spinal needle was introduced at L4-5 interspace. Positive CSF, negative blood, negative paresthesia. CSF color was clear. CSF opening pressure was 18 cm . 26 ml of CSF was collected in 4 supplied sterol containers in sequence. Spinal needle was taken out and bandage was applied. Disposition. She tolerated the procedure well. No complication. Advised patient to lay flat one-hour postprocedure. The rest of the day today try to lay flat as much as possible. Next 3 days drink lots of fluid especially caffeinated beverages, and avoid constipation cough and doing strenuous physical work. Discharged home in stable condition.
[2023-11-16 12:45] VITALS: BP 150/80; PULSE 51; RESP 16
== END 2023-11-16 13:22 | disposition home or self-care (01) ==
LOC: ORPAIN 09:30
PROVIDERS: ATTEND Pain Medicine Interventional Pain Medicine
DX: D72.820 Lymphocytosis (symptomatic) (principal); E11.9 Type 2 diabetes mellitus without complications; I10 Essential (primary) hypertension; Z79.02 Long term (current) use of antithrombotics/antiplatelets; Z79.82 Long term (current) use of aspirin
CPT/HCPCS: 62270; 88108

== ENCOUNTER → 2024-11-18 | Outpatient (CLI) | payer OTHER ==
--- NOTE | 2024-11-18 08:07 | CT ---
EXAMINATION TYPE: CT chest wo con DATE OF EXAM: 11/18/2024 COMPARISON: Outside study from February 06, 2024 CLINICAL INDICATION: Male, 74 years old with history of C34.31 MALIGNANT NEOPLASM OF LOWER LOBE, RIGH T BR; PH[facility], TECHNIQUE: CT scan of the thorax is performed without IV contrast. CT DLP: mGycm CT CTDI: mGy Automated exposure control for dose reduction was used. FINDINGS: LUNGS: Right lower lobe pleural-based mildly spiculated nodule is again noted and is minimally smalle r in size relative to the prior study with current measurement of 1.9 x 1.8 cm versus 2.1 x 1.6 cm. S mall focus of internal calcification noted. No new nodules or masses identified. No evidence of volum e loss or infiltrate. The lungs demonstrate mild COPD. MEDIASTINUM: Lack of IV contrast is noted to limit evaluation for mediastinal and especially hilar ad enopathy. There are no definitive greater than 1 cm hilar or mediastinal lymph nodes. No cardiomega ly or pericardial effusion is seen. OTHER: No additional significant abnormality is seen. IMPRESSION: Right lower lobe pulmonary nodule as described appears minimally smaller in size. No new nodules identified. Follow-up recommendations for incidental pulmonary nodules are per [employer] or [employer]. [facility], , 11/18/2024 8:05 AM
== END | disposition home or self-care (01) ==
LOC: RADCTMAIN 07:25
PROVIDERS: ATTEND Radiology Radiation Oncology
DX: C34.31 Malignant neoplasm of lower lobe, right bronchus or lung (principal); R91.1 Solitary pulmonary nodule
CPT/HCPCS: 71250

== ENCOUNTER → 2025-03-31 | Outpatient (CLI) | payer OTHER ==
--- NOTE | 2025-03-31 08:24 | CT ---
EXAMINATION TYPE: CT chest wo con DATE OF EXAM: 03/31/2025 8:15 AM COMPARISON: 11/18/2024 CLINICAL INDICATION: Male, 74 years old with history of C34.31 MALIGNANT NEOPLASM OF LOWER LOBE; PHH, Malignant neoplasm of lower lobe RT bronchus or lung TECHNIQUE: Multiple axial images were obtained through the chest. Sagittal and coronal reformats were created for review. MIP was performed on a separate workstation. Contrast used: mL of (None if empty) Oral contrast used: (None if empty) CT DLP: 398.70 mGycm, Automated exposure control for dose reduction was used. FINDINGS: LUNGS/ PLEURA: Right lower lobe consolidation changes with some calcifications with trace right pleur al effusion findings have progressed from prior. Previously airspace opacities in the right lower lob e pulmonary nodule were present. Be other smaller pulmonary nodules in the right lung base versus airspace disease. No left focal cons olidation, pneumothorax or pleural effusion. AIRWAY: Patent and unremarkable. HEART: Size within normal limits. Coronary artery atherosclerotic changes and stents present. MEDIASTINUM: No gross evidence of adenopathy. VASCULATURE: Atherosclerotic calcifications are present throughout the aorta and its branches. MUSCULOSKELETAL: Moderate disc degeneration changes are present throughout the thoracolumbar spine se condary to osteophyte formation and facet joint arthropathy. SOFT TISSUES/LYMPH NODES: Unremarkable. LOWER NECK: No significant findings. UPPER ABDOMEN: No significant findings. IMPRESSION: Right lower lobe malignancy seen on prior on 05/08/2024 is no longer visualized. There is consolidatio n changes in the right lower lobe with calcifications trace or pleural fusion. No evidence for lympha denopathy at this time. Correlate for developing pneumonia superimposed on posttreatment change. Cons ider PET/CT. [facility], , 03/31/2025 8:22 AM
== END | disposition home or self-care (01) ==
LOC: RADCTMAIN 07:49
PROVIDERS: ATTEND Radiology Radiation Oncology
DX: C34.31 Malignant neoplasm of lower lobe, right bronchus or lung (principal); R91.8 Other nonspecific abnormal finding of lung field; Z85.810 Personal history of malignant neoplasm of tongue
CPT/HCPCS: 71250